=== PATIENT | male | born 1975 | race Caucasian/White ===

== ENCOUNTER 2019-01-04 18:54 | Inpatient (IN) | payer MEDICAID ==
--- NOTE | 2019-01-04 19:35 | ED Physician Chart ---
ED Chief Complaint/HPI - Patient Information Date Seen:: 01/04/19 Time Seen:: 19:29 Chief Complaint:: sob resp distress leg swelling History of Present Illness:: 43 yr old male with hx of cardiomyopathy unclear why and cardimyopathy and now worse sob and trouble breathng pt simon s sleep apnea and trouble sleeping here snoring sleeping here with sister who gave me the hx pt not talking much sleepy and sleeping Allergies:: Allergies Allergy/AdvReac Type Severity Reaction Status Date / Time No Known Allergies Allergy Verified 08/17/16 12:39 Vitals:: Vital Signs - 8 hr 01/04/19 19:19 Temp 97.8 F HR 108 RR 23 BP 118/95 O2 Sat % 96 ED Review of Systems - Review of Systems General/Constitutional: No fever Skin: No skin lesions Head: No headache Eyes: No loss of vision ENT: No earache Neck: No neck pain Cardio Vascular: No chest pain Pulmonary: SOB GI: No nausea G/U: No dysuria Musculoskeletal: No bone or joint pain Endocrine: No polyuria Hematopoietic: No bruising Allergic/Immuno: No urticaria Neurological: No syncope ED Past Medical History - Past Medical History Past Medical History: Other (cardiomyopathy chf severe leg edema bilaterally) Family Medical History - Family Member Father Ethnicity: Living Status: Still Living Hx Family Hypertension: Yes Hx Family Diabetes: Yes ED Physical Exam - Physical Examination Other Gen/Cons comments:: snoring severe sleep apnea Head: Atraumatic Eyes: Lids, conjuctiva normal Skin: Nl inspection, No rash ENMT: External ears, nose nl Neck: Nontender Other Respiratory comments:: snoring sleep apnea Cardio Vascular: RRR GI: No organomegaly : No CVA tenderness Extremities: No tenderness or effusion Neuro/Psych: Alert/oriented ED Assessment - Assessment General Assessment: sleep apnea obstructive sleep apnea with sob resp distress ED Septic Shock - . Is Septic Shock (SBP<90, OR Lactate>4 mmol\L) present?: No - <6hrs of presentation: Vital Signs: Vital Signs - 8 hr 01/04/19 19:19 Temp 97.8 F HR 108 RR 23 BP 118/95 O2 Sat % 96 ED Reassessment (Disposition) - Reassessment Reassessment:: sleep apnea obstructive sleep apnea sob resp distress Reassessment Condition:: Improved - Diagnosis Diagnosis:: resp distress sleep anea cardiomyopathy and chf ht failure with massive leg edema - Patient Disposition Discharge/Transfer:: Acute Care w/in this hosp Admitted to:: Telemetry Condition at Disposition:: Critical
[2019-01-04] MEDS ORDERED: Albuterol/Ipratropium Neb 3 ML AERS HHN ONE ×2 (19:41→19:43)
[2019-01-04 20:03] LABS: HEMATOCRIT 43.6 % (41.0-60); HEMOGLOBIN 14.8 gm/dL (12-16); MEAN CELL VOLUME 92.4 fl (80-99); MEAN CORPUSCULAR HEMOGLOBIN 31.3 pg (26.0-30.0); MEAN CORPUSCULAR HGB CONC 33.9 pg (28.0-36.0); MEAN PLATELET VOLUME 7.9 fl; PLATELET COUNT 154 Th/cmm (150-400); RED BLOOD COUNT 4.72 Mil/cmm (4.30-5.70); RED CELL DISTRIBUTION WIDTH 14.8 % (11.5-20.0); WHITE BLOOD COUNT 11.8 Th/cmm (4.8-10.8)
[2019-01-04 20:12] LABS: ALBUMIN 3.6 gm/dL (4.2-5.5); ALKALINE PHOSPHATASE 96 U/L (34-104); ANION GAP 13.2 (7.0-16.0); BILIRUBIN,TOTAL 3.6 mg/dL (0.3-1.0); BUN - UREA NITROGEN 15 mg/dL (7-25); CALCIUM SERUM 8.9 mg/dL (8.6-10.3); CARBON DIOXIDE 23.7 mEq/L (21.0-31.0); CHLORIDE 101 mEq/L (98-107); CREATININE - SERUM 0.8 mg/dL (0.7-1.3); GFR AFRICAN-AMERICAN > 60.0 ml/min (>90); GFR NON AFRICAN-AMERICAN > 60.0 ml/min; GLUCOSE 106 mg/dL (70-105); POTASSIUM SERUM 3.9 mEq/L (3.5-5.1); SGOT 28 U/L (13-39); SGPT/ALT 23 U/L (7-52); SODIUM SERUM 134 mEq/L (136-145); TOTAL PROTEIN,SERUM 7.2 gm/dL (6.0-8.3)
[2019-01-04 22:11] LABS: BAND NEUTROPHILE 0 % (0-10); BASOPHIL 0 % (0-3); EOSINOPHIL 0 % (0-5); LYMPHOCYTE 8 % (20-50); MONOCYTE 8 % (2-10); NEUTROPHILS 84 % (40-80)
[2019-01-05 00:50] LABS: PaCO2 43.7 mmHg (35.0-45.0); PaO2 109.5 mmHg (80.0-100.0); pH 7.38 (7.35-7.45)
[2019-01-05 00:52] LABS: ALLEN TEST Positive; sO2c 97.9 % (92.0-100.0)
[2019-01-05 05:26] VITALS: BP 137/97
[2019-01-05 06:40] LABS: ANION GAP 12.8 (7.0-16.0); BUN - UREA NITROGEN 17 mg/dL (7-25); CALCIUM SERUM 8.9 mg/dL (8.6-10.3); CARBON DIOXIDE 26.1 mEq/L (21.0-31.0); CHLORIDE 101 mEq/L (98-107); CREATININE - SERUM 0.9 mg/dL (0.7-1.3); GFR AFRICAN-AMERICAN > 60.0 ml/min (>90); GFR NON AFRICAN-AMERICAN > 60.0 ml/min; GLUCOSE 96 mg/dL (70-105); POTASSIUM SERUM 3.9 mEq/L (3.5-5.1); SODIUM SERUM 136 mEq/L (136-145)
[2019-01-05] MEDS: Enoxaparin 40 mg/0.4 mL 0.4mL Syr SUBQ SCH (08:25)
[2019-01-05] MEDS: Aspirin 81mg Chewable Tab PO SCH (08:25)
--- NOTE | 2019-01-05 09:38 | Diagnostic Imaging Report ---
Exam: Chest x-ray HISTORY: Shortness of breath. Prior exam: 05/03/2017. Findings: Frontal examination of chest was reviewed. The study demonstrates cardiomegaly. There is evidence for obliteration of left costophrenic angle with small effusion and superimposed left basilar infiltrate. Bony thorax intact. IMPRESSION: Cardiomegaly. Most likely left basilar infiltrate and small effusion. Follow-up exam is recommended.
[2019-01-05 10:09] LABS: URINE SOURCE CLEAN C
[2019-01-05 10:13] LABS: URINE BILIRUBIN NEGATIVE (NEGATIVE); URINE BLOOD NEGATIVE (NEGATIVE); URINE GLUCOSE (UA) NEGATIVE (NEGATIVE); URINE KETONE NEGATIVE (NEGATIVE); URINE LEUKOCYTE ESTERASE NEGATIVE (NEGATIVE); URINE NITRATE NEGATIVE (NEGATIVE); URINE PROTEIN NEGATIVE (NEGATIVE); URINE UROBILINOGEN 0.2 E.U./dL (0.2 - 1.0)
[2019-01-05 10:16] LABS: URINE CLARITY CLEAR (CLEAR); URINE COLOR YELLOW; URINE MICROSCOPIC INDICATED? NO
--- NOTE | 2019-01-05 21:06 | History & Physical ---
ADMIT DATE: 01/05/2019 CHIEF COMPLAINT: Acute shortness of breath. HISTORY OF PRESENT ILLNESS: The patient is a 43-year-old male with long history of cardiomyopathy, obesity, sleep apnea, hypertension, presented to the Emergency Room with progressive shortness of breath for a few days' duration. By the ER physician, initial workup subacute exacerbation of CHF. The patient admitted to the hospital, started on medication and BiPAP. Cardiac consultation obtained. The patient denies any fever, any chills, or any chest pain. PAST MEDICAL HISTORY: Significant for hypertension, cardiomyopathy, CHF, sleep apnea, morbid obesity. PAST SURGICAL HISTORY: Abdominal hernia repair. ALLERGIES: None. MEDICATIONS: Follow admission reconciliation. SOCIAL HISTORY: No smoker, no alcohol, no drug. FAMILY HISTORY: Noncontributory. REVIEW OF SYSTEMS: RENAL SYSTEM: No history of chronic renal disorder. CARDIOVASCULAR SYSTEM: He has history of congestive heart failure, cardiomyopathy, hypertension. ENDOCRINE SYSTEM: No diabetes or thyroid problem. GASTROINTESTINAL SYSTEM: No upper or lower gastrointestinal bleed. NEUROLOGICAL SYSTEM: No seizure disorder. MUSCULOSKELETAL SYSTEM: No muscular dystrophy. HEMATOLOGIC SYSTEM: No bleeding tendencies. RESPIRATORY SYSTEM: Sleep apnea. PHYSICAL EXAMINATION: GENERAL: He is awake, alert, oriented, not in pain or distress. VITAL SIGNS: Temperature 98.2, heart rate 64, blood pressure 112/61. HEENT: Normocephalic. Pupils reacting equal to light and accommodation. Sclerae clear. NECK: Supple. Negative for lymphadenopathy, JVD or bruit. CHEST: Entry of air bilateral normal. No rhonchi or wheezing. HEART: S1, S2 normal. No gallop rhythm. ABDOMEN: Soft, bowel sounds positive. EXTREMITIES: 1+ edema. NEUROLOGIC: Awake, alert, oriented. No focal motor deficits. Cranial nerves 2-12 intact. ASSESSMENT: 1. Acute exacerbation of congestive heart failure. 2. Cardiomyopathy. 3. Hypertension. 4. Sleep apnea. PLAN: The patient in telemetry under Dr. Hanna's service, started on cardiac diet, IV Lasix, resume his home medication. Cardiac consultation obtained. The patient is a full code. Lovenox 40 subq daily ordered. JOB# [id number]
[2019-01-06] MEDS ORDERED: Piperacillin Sodium/Tazobact 3.375 gm Vial IV ONE (05:46)
[2019-01-06 06:18] LABS: ALB/GLOB RATIO 0.9 (1.0-1.8); ALBUMIN 3.4 gm/dL (4.2-5.5); ALKALINE PHOSPHATASE 93 U/L (34-104); ANION GAP 11.8 (7.0-16.0); BILIRUBIN,TOTAL 2.7 mg/dL (0.3-1.0); BUN - UREA NITROGEN 20 mg/dL (7-25); CALCIUM SERUM 8.9 mg/dL (8.6-10.3); CHLORIDE 98 mEq/L (98-107); CHOLESTEROL 91 mg/dL (<200); GLUCOSE 109 mg/dL (70-105); HDL -HIGH DENSITY LIPOPROTEIN 36 mg/dL (23-92); POTASSIUM SERUM 3.8 mEq/L (3.5-5.1); SGOT 24 U/L (13-39); SGPT/ALT 21 U/L (7-52); SODIUM SERUM 133 mEq/L (136-145); TRIGLYCERIDES 53 mg/dL (<150)
--- NOTE | 2019-01-06 07:02 | Consultation ---
DATE OF CONSULTATION: 01/05/2019 HISTORY OF PRESENT ILLNESS: This is a 43-year-old male who was seen and examined. The patient was admitted here with shortness of breath and respiratory distress. He was found to be in congestive heart failure. The patient had an echocardiogram done today, which showed the ejection fraction of 10 only. The patient had severe left ventricular systolic dysfunction and cardiomyopathy. The patient has history of hypertension, hyperlipidemia, and probable old DC. The patient also found to have cellulitis of both lower extremities. He also has history of obstructive sleep apnea, he has been advised to use BiPAP and obesity. The patient denied any chest pain, has history of shortness of breath, no history of cough, history of swelling over the legs. No history of palpitations, no history of dizziness, no history of syncope, no history of abdominal pain. PAST MEDICAL HISTORY: Not much available as mentioned above. FAMILY HISTORY: Not much available. SOCIAL HISTORY: Denies smoking or drinking. PHYSICAL EXAMINATION: VITAL SIGNS: Heart rate was 86, blood pressure was 126/97, temperature 98.3, respirations 20. SKIN: Normal. HEENT: Normocephalic. Conjunctivae were pink. There is no icterus in the eyes. Pupils reactive to light. NECK: There was no increased jugular venous distention, no thyromegaly, no lymphadenopathy. Carotids equal, both sides. CHEST: Bilaterally symmetrical. Moves well with respiration. Respiratory movements equal both sides. Trachea is central. There is note to percussion. Breath sounds, bilateral rales. CARDIOVASCULAR SYSTEM: PMI not well localized and no positional thrill. No parasternal heave. S1 normal, S2 physiologic. S3 was present. There was no rub. ABDOMEN: Soft, no tenderness, no rigidity, no guarding and no organomegaly. Bowel sounds normal. EXTREMITIES: Bilateral edema and swelling of the legs and redness of both lower extremities. LABORATORY DATA: EKG showed sinus rhythm, loss of R-wave from V1-V4 and a very small R-wave in V5 and V6, possible left atrial enlargement, also could be possible old anterior wall DC. Chest x-ray report is not available to me. BNP was 1550. Sodium 134, potassium 3.9, chloride 101, CO2 of 23.7, glucose 106, BUN 15, creatinine 0.8, calcium 8.9, total protein 7.2, albumin 3.6, globulin 3.6, bilirubin total 3.6, SGOT 28, SGPT 23, alkaline phosphatase 96. Blood gases reveal pH of 7.38, pCO2 of 43.7, pO2 of 109.5, HCO3 25.3. WBC was 11.8, RBC 4.72, hemoglobin 14.8, hematocrit 43.6, MCV 92.4, MCH 31.3, MCHC 33.9, platelet 154, neutrophils 84. Echocardiogram as mentioned above showed ejection fraction of 10%. IMPRESSION: Shortness of breath, congestive heart failure, severe left ventricular systolic dysfunction, severe cardiomyopathy, hypertension, hyperlipidemia, cellulitis of both lower extremities, obesity, history of obstructive sleep apnea. PLAN: Repeat the troponin, repeat EKG in a.m., lipid profile and TSH. Continue diuretics, Lasix and Aldactone, potassium supplement if needed. We will continue carvedilol 12.5 b.i.d. We will add aspirin also, Lovenox 40 mg subcutaneous daily. The patient should be seen by ID. In the meantime, we will put her on some antibiotics, vancomycin and Zosyn, pharmacy to follow, but subsequent antibiotic should be followed by ID or PMD since the patient has been on medical management before and since patient's ejection fraction is very low, we should definitely consider and offer AICD to the patient. I will discuss with the PMD. The patient will be subsequently followed by Dr. David Arnold. I will just cover for him. JOB# [id number]
[2019-01-06 07:40] LABS: CREATININE - SERUM 0.8 mg/dL (0.7-1.3); GFR AFRICAN-AMERICAN > 60.0 ml/min (>90); GFR NON AFRICAN-AMERICAN > 60.0 ml/min
[2019-01-06] MEDS: Enoxaparin 40 mg/0.4 mL 0.4mL Syr SUBQ SCH (08:52)
[2019-01-06] MEDS: Atorvastatin Calcium 10 MG TAB PO SCH (08:53)
[2019-01-06] MEDS: Aspirin 81mg Chewable Tab PO SCH (08:54)
[2019-01-06] MEDS: Vancomycin HCl 1.5 GM in Sodium Chloride 0.9% 500 ML IV SCH (16:35)
--- NOTE | 2019-01-06 21:13 | Internal Medicine Prog Note ---
Internal Medicine Subjective - Subjective Service Date: 01/06/19 Patient is:: awake, verbal, in bed, talking Per staff patient has:: no adverse event Internal Medicine Objective - Results Result Diagrams: 01/04/19 19:35 01/06/19 04:51 Recent Labs: Laboratory Last Values WBC 11.8 Th/cmm (4.8-10.8) H 01/04/19 19:35 RBC 4.72 Mil/cmm (4.30-5.70) 01/04/19 19:35 Hgb 14.8 gm/dL (12-16) 01/04/19 19:35 Hct 43.6 % (41.0-60) 01/04/19 19:35 MCV 92.4 fl (80-99) 01/04/19 19:35 MCH 31.3 pg (26.0-30.0) H 01/04/19 19:35 MCHC Differential 33.9 pg (28.0-36.0) 01/04/19 19:35 RDW 14.8 % (11.5-20.0) 01/04/19 19:35 Plt Count 154 Th/cmm (150-400) 01/04/19 19:35 MPV 7.9 fl 01/04/19 19:35 Add Manual Diff YES 01/04/19 19:35 Band Neutrophils % 0 % (0-10) 01/04/19 19:35 Neutrophils (Manual) 84 % (40-80) H 01/04/19 19:35 Lymphocytes 8 % (20-50) L 01/04/19 19:35 Monocytes 8 % (2-10) 01/04/19 19:35 Eosinophils 0 % (0-5) 01/04/19 19:35 Basophils 0 % (0-3) 01/04/19 19:35 Specimen Source ARTERIAL 01/05/19 00:30 Sample Site Right Radial 01/05/19 00:30 pH 7.38 (7.35-7.45) 01/05/19 00:30 pCO2 43.7 mmHg (35.0-45.0) 01/05/19 00:30 pO2 109.5 mmHg (80.0-100.0) H 01/05/19 00:30 HCO3 25.3 mEq/L (20.0-26.0) 01/05/19 00:30 Base Excess 0.0 mEq/L (-3.0-3.0) 01/05/19 00:30 O2 Saturation 97.9 % (92.0-100.0) 01/05/19 00:30 Javier Test Positive 01/05/19 00:30 Vent Rate N/A 01/05/19 00:30 Inspired O2 36 01/05/19 00:30 Tidal Volume N/A 01/05/19 00:30 PEEP N/A 01/05/19 00:30 Pressure (ins/psv/peep) N/A 01/05/19 00:30 Critical Value MM,AUTO [employer] CUST[employer]IZER 01/05/19 00:30 Sodium 133 mEq/L (136-145) L 01/06/19 04:51 Potassium 3.8 mEq/L (3.5-5.1) 01/06/19 04:51 Chloride 98 mEq/L (98-107) 01/06/19 04:51 Carbon Dioxide 27.0 mEq/L (21.0-31.0) 01/06/19 04:51 Anion Gap 11.8 (7.0-16.0) 01/06/19 04:51 BUN 20 mg/dL (7-25) 01/06/19 04:51 Creatinine 0.8 mg/dL (0.7-1.3) 01/06/19 04:51 Est GFR ( Amer) > 60.0 ml/min (>90) 01/06/19 04:51 Est GFR (Non-Af Amer) > 60.0 ml/min 01/06/19 04:51 BUN/Creatinine Ratio 25.0 01/06/19 04:51 Glucose 109 mg/dL (70-105) H 01/06/19 04:51 Calcium 8.9 mg/dL (8.6-10.3) 01/06/19 04:51 Total Bilirubin 2.7 mg/dL (0.3-1.0) H 01/06/19 04:51 AST 24 U/L (13-39) 01/06/19 04:51 ALT 21 U/L (7-52) 01/06/19 04:51 Alkaline Phosphatase 93 U/L (34-104) 01/06/19 04:51 B-Natriuretic Peptide 671.0 pg/mL (5.0-100.0) H 01/06/19 04:51 Total Protein 7.0 gm/dL (6.0-8.3) 01/06/19 04:51 Albumin 3.4 gm/dL (4.2-5.5) L 01/06/19 04:51 Globulin 3.6 gm/dL 01/06/19 04:51 Albumin/Globulin Ratio 0.9 (1.0-1.8) L 01/06/19 04:51 Triglycerides 53 mg/dL (<150) 01/06/19 04:51 Cholesterol 91 mg/dL (<200) 01/06/19 04:51 LDL Cholesterol Direct 52 mg/dL (75-193) L 01/06/19 04:51 HDL Cholesterol 36 mg/dL (23-92) 01/06/19 04:51 TSH 0.03 uIU/ml (0.34-5.60) L 01/06/19 04:51 Urine Source CLEAN C 01/05/19 10:00 Urine Color YELLOW 01/05/19 10:00 Urine Clarity CLEAR (CLEAR) 01/05/19 10:00 Urine pH 6.0 (4.6 - 8.0) 01/05/19 10:00 Ur Specific [place] 1.010 (1.005-1.030) 01/05/19 10:00 Urine Protein NEGATIVE mg/dL (NEGATIVE) 01/05/19 10:00 Urine Glucose (UA) NEGATIVE mg/dL (NEGATIVE) 01/05/19 10:00 Urine Ketones NEGATIVE mg/dL (NEGATIVE) 01/05/19 10:00 Urine Blood NEGATIVE (NEGATIVE) 01/05/19 10:00 Urine Nitrate NEGATIVE (NEGATIVE) 01/05/19 10:00 Urine Bilirubin NEGATIVE (NEGATIVE) 01/05/19 10:00 Urine Urobilinogen 0.2 E.U./dL (0.2 - 1.0) 01/05/19 10:00 Ur Leukocyte Esterase NEGATIVE (NEGATIVE) 01/05/19 10:00 - Physical Exam Vitals and I&O: Vital Signs Temp 97.6 F 01/06/19 20:00 Pulse 82 01/06/19 20:00 Resp 19 01/06/19 20:00 BP 116/77 01/06/19 20:00 Pulse Ox 95 01/06/19 20:00 Intake & Output 01/06/19 01/06/19 01/07/19 06:59 18:59 06:59 Intake Total 50 2100 Output Total 2049 Balance 50 50 Weight (lbs) 44.543 kg 136.305 kg Intake: Intake, IV Amount 50 850 Piperacillin Sodium/ 50 100 Tazobact 3.375 gm In Sodium Chloride 0.9% 50 ml @ 100 mls/hr IV Q6HR [facility] Rx#:[id number] Vancomycin HCl 1.5 gm In 500 Sodium Chloride 0.9% 500 ml @ 250 mls/hr IV Q8HR@ 0100,0900,1700 [facility] Rx#: [id number] Oral 1250 Output: Urine 2049 Other: # Voids 3 # Bowel Movements 2 Stool Characteristics Soft Soft Formed Formed Brown Brown Weight Source Bedscale Bedscale Active Medications: Current Medications Acetaminophen (Tylenol) 650 mg PO Q4H PRN PRN Reason: Pain (Moderate) Stop: 03/07/19 14:17 Last Admin: 01/06/19 14:59 Dose: 650 mg Aspirin (Aspirin Chewable) 81 mg PO DAILY [facility] Stop: 03/06/19 08:59 Last Admin: 01/06/19 08:54 Dose: 81 mg Atorvastatin Calcium (Lipitor) 20 mg PO DAILY [facility]; Protocol Stop: 03/07/19 08:59 Last Admin: 01/06/19 08:53 Dose: 20 mg Carvedilol (Coreg) 12.5 mg PO DAILY [facility] Stop: 03/06/19 08:59 Last Admin: 01/06/19 08:53 Dose: 12.5 mg Enoxaparin Sodium (Lovenox) 40 mg SUBQ DAILY [facility] Stop: 03/06/19 08:59 Last Admin: 01/06/19 08:52 Dose: 40 mg Furosemide (Lasix) 40 mg IVP BID [facility] Stop: 03/06/19 08:59 Last Admin: 01/06/19 17:29 Dose: 40 mg Piperacillin Sod/Tazobactam (Sod 3.375 gm/ Sodium Chloride) 50 mls @ 100 mls/ hr IV Q6HR [facility] Stop: 03/07/19 05:59 Last Infusion: 01/06/19 18:43 Dose: Infused Vancomycin HCl 1.5 gm/ Sodium (Chloride) 500 mls @ 250 mls/hr IV Q8HR@0100,0900 ,1700 [facility] Stop: 03/07/19 16:59 Last Infusion: 01/06/19 18:43 Dose: Infused Lisinopril (Zestril) 5 mg PO DAILY [facility] Stop: 03/07/19 08:59 Last Admin: 01/06/19 08:53 Dose: 5 mg Miscellaneous (Zosyn Iv Per Pharmacy) 1 [facility] PRN PRN PRN Reason: Suspected infection Stop: 03/07/19 05:08 Miscellaneous (Vancomycin Iv Per Pharmacy) 1 [facility] PRN PRN PRN Reason: PROTOCOL Stop: 03/07/19 08:48 Spironolactone (Aldactone) 50 mg PO DAILY [facility] Stop: 03/06/19 08:59 Last Admin: 01/06/19 08:54 Dose: 50 mg General: alert, obese HEENT: NC/AT, PERRLA, EOMI, anicteric sclerae, throat clear Neck: Supple, No JVD, No thyromegaly, +2 carotid pulse wo bruit, No LAD Cardiovascular: RRR, Normal S1, Normal S2, without murmur Abdomen: soft, non-tender, non-distended Extremities: edema Neurological: no change, alert - Procedures Procedures: Procedures Procedure Code Date DRAINAGE OF STOMACH WITH DRAINAGE DEVICE, VIA OPENING [id number] 08/17/16 EXCISION OF GREATER OMENTUM, OPEN APPROACH [id number] 08/17/16 REPAIR ABDOMINAL WALL, OPEN APPROACH [id number] 08/17/16 Internal Medicine Assmt/Plan - Assessment Assessment: 1.ACUTE SYSTOLIC CHF. 2.MORBID OBESITY. 3.CELLULITES OF LOWER EXTREMETIES. 4.SLEEPING APNEA. - Plan Plan: LIQUID RESTRICTION.
[2019-01-07] MEDS: Vancomycin HCl 1.5 GM in Sodium Chloride 0.9% 500 ML IV SCH ×2 (00:49→11:05)
[2019-01-07 06:41] LABS: % EOSINOPHILS 4.6 % (0.0-5.0); % LYMPHOCYTES 13.2 % (20.0-50.0); % MONOCYTES 11.6 % (2.0-10.0); % NEUTROPHILS 70.6 % (40.0-80.0); EOSINOPHILE ABSOLUTE 0.3 Th/cmm (0.1-0.4); HEMATOCRIT 44.6 % (41.0-60); HEMOGLOBIN 14.8 gm/dL (12-16); LYMPHOCYTE ABSOLUTE 0.9 Th/cmm (1.5-3.0); MEAN CELL VOLUME 93.1 fl (80-99); MEAN CORPUSCULAR HEMOGLOBIN 30.8 pg (26.0-30.0); MEAN CORPUSCULAR HGB CONC 33.1 pg (28.0-36.0); MEAN PLATELET VOLUME 8.2 fl; MONOCYTE ABSOLUTE 0.8 Th/cmm (0.3-1.0); NEUTROPHILE ABSOLUTE 5.1 Th/cmm (1.8-8.0); PLATELET COUNT 183 Th/cmm (150-400); RED BLOOD COUNT 4.79 Mil/cmm (4.30-5.70); RED CELL DISTRIBUTION WIDTH 14.7 % (11.5-20.0); WHITE BLOOD COUNT 7.1 Th/cmm (4.8-10.8)
[2019-01-07 07:00] LABS: MAGNESIUM 1.9 mg/dL (1.9-2.7); PHOSPHOROUS 3.2 mg/dL (2.5-5.0)
[2019-01-07] MEDS: Aspirin 81mg Chewable Tab PO SCH (09:22)
[2019-01-07] MEDS: Atorvastatin Calcium 10 MG TAB PO SCH (09:23)
[2019-01-07] MEDS: Enoxaparin 40 mg/0.4 mL 0.4mL Syr SUBQ SCH (09:24)
--- NOTE | 2019-01-07 13:08 | General Progress Note ---
Subjective - Review of Systems Service Date: 01/07/19 Subjective: Patient has less shortness of breath still swelling in both lower extremity Objective - Results Result Diagrams: 01/07/19 05:40 01/06/19 04:51 Recent Labs: Laboratory Last Values WBC 7.1 Th/cmm (4.8-10.8) 01/07/19 05:40 RBC 4.79 Mil/cmm (4.30-5.70) 01/07/19 05:40 Hgb 14.8 gm/dL (12-16) 01/07/19 05:40 Hct 44.6 % (41.0-60) 01/07/19 05:40 MCV 93.1 fl (80-99) 01/07/19 05:40 MCH 30.8 pg (26.0-30.0) H 01/07/19 05:40 MCHC Differential 33.1 pg (28.0-36.0) 01/07/19 05:40 RDW 14.7 % (11.5-20.0) 01/07/19 05:40 Plt Count 183 Th/cmm (150-400) 01/07/19 05:40 MPV 8.2 fl 01/07/19 05:40 Add Manual Diff YES 01/04/19 19:35 Neutrophils % 70.6 % (40.0-80.0) 01/07/19 05:40 Band Neutrophils % 0 % (0-10) 01/04/19 19:35 Lymphocytes % 13.2 % (20.0-50.0) L 01/07/19 05:40 Monocytes % 11.6 % (2.0-10.0) H 01/07/19 05:40 Eosinophils % 4.6 % (0.0-5.0) 01/07/19 05:40 Basophils % 0.0 % (0.0-2.0) 01/07/19 05:40 Neutrophils (Manual) 84 % (40-80) H 01/04/19 19:35 Lymphocytes 8 % (20-50) L 01/04/19 19:35 Monocytes 8 % (2-10) 01/04/19 19:35 Eosinophils 0 % (0-5) 01/04/19 19:35 Basophils 0 % (0-3) 01/04/19 19:35 Specimen Source ARTERIAL 01/05/19 00:30 Sample Site Right Radial 01/05/19 00:30 pH 7.38 (7.35-7.45) 01/05/19 00:30 pCO2 43.7 mmHg (35.0-45.0) 01/05/19 00:30 pO2 109.5 mmHg (80.0-100.0) H 01/05/19 00:30 HCO3 25.3 mEq/L (20.0-26.0) 01/05/19 00:30 Base Excess 0.0 mEq/L (-3.0-3.0) 01/05/19 00:30 O2 Saturation 97.9 % (92.0-100.0) 01/05/19 00:30 Javier Test Positive 01/05/19 00:30 Vent Rate N/A 01/05/19 00:30 Inspired O2 36 01/05/19 00:30 Tidal Volume N/A 01/05/19 00:30 PEEP N/A 01/05/19 00:30 Pressure (ins/psv/peep) N/A 01/05/19 00:30 Critical Value MM,AC/DC REWINDER 01/05/19 00:30 Sodium 133 mEq/L (136-145) L 01/06/19 04:51 Potassium 3.8 mEq/L (3.5-5.1) 01/06/19 04:51 Chloride 98 mEq/L (98-107) 01/06/19 04:51 Carbon Dioxide 27.0 mEq/L (21.0-31.0) 01/06/19 04:51 Anion Gap 11.8 (7.0-16.0) 01/06/19 04:51 BUN 20 mg/dL (7-25) 01/06/19 04:51 Creatinine 0.8 mg/dL (0.7-1.3) 01/06/19 04:51 Est GFR ( Amer) > 60.0 ml/min (>90) 01/06/19 04:51 Est GFR (Non-Af Amer) > 60.0 ml/min 01/06/19 04:51 BUN/Creatinine Ratio 25.0 01/06/19 04:51 Glucose 109 mg/dL (70-105) H 01/06/19 04:51 Calcium 8.9 mg/dL (8.6-10.3) 01/06/19 04:51 Phosphorus 3.2 mg/dL (2.5-5.0) 01/07/19 05:40 Magnesium 1.9 mg/dL (1.9-2.7) 01/07/19 05:40 Total Bilirubin 2.7 mg/dL (0.3-1.0) H 01/06/19 04:51 AST 24 U/L (13-39) 01/06/19 04:51 ALT 21 U/L (7-52) 01/06/19 04:51 Alkaline Phosphatase 93 U/L (34-104) 01/06/19 04:51 B-Natriuretic Peptide 671.0 pg/mL (5.0-100.0) H 01/06/19 04:51 Total Protein 7.0 gm/dL (6.0-8.3) 01/06/19 04:51 Albumin 3.4 gm/dL (4.2-5.5) L 01/06/19 04:51 Globulin 3.6 gm/dL 01/06/19 04:51 Albumin/Globulin Ratio 0.9 (1.0-1.8) L 01/06/19 04:51 Triglycerides 53 mg/dL (<150) 01/06/19 04:51 Cholesterol 91 mg/dL (<200) 01/06/19 04:51 LDL Cholesterol Direct 52 mg/dL (75-193) L 01/06/19 04:51 HDL Cholesterol 36 mg/dL (23-92) 01/06/19 04:51 TSH 0.03 uIU/ml (0.34-5.60) L 01/06/19 04:51 Urine Source CLEAN C 01/05/19 10:00 Urine Color YELLOW 01/05/19 10:00 Urine Clarity CLEAR (CLEAR) 01/05/19 10:00 Urine pH 6.0 (4.6 - 8.0) 01/05/19 10:00 Ur Specific [place] 1.010 (1.005-1.030) 01/05/19 10:00 Urine Protein NEGATIVE mg/dL (NEGATIVE) 01/05/19 10:00 Urine Glucose (UA) NEGATIVE mg/dL (NEGATIVE) 01/05/19 10:00 Urine Ketones NEGATIVE mg/dL (NEGATIVE) 01/05/19 10:00 Urine Blood NEGATIVE (NEGATIVE) 01/05/19 10:00 Urine Nitrate NEGATIVE (NEGATIVE) 01/05/19 10:00 Urine Bilirubin NEGATIVE (NEGATIVE) 01/05/19 10:00 Urine Urobilinogen 0.2 E.U./dL (0.2 - 1.0) 01/05/19 10:00 Ur Leukocyte Esterase NEGATIVE (NEGATIVE) 01/05/19 10:00 - Physical Exam Vitals and I&O: Vital Signs Temp 98 F 01/07/19 12:00 Pulse 79 01/07/19 12:00 Resp 20 01/07/19 12:00 BP 128/82 01/07/19 12:00 Pulse Ox 100 01/07/19 12:00 Intake & Output 01/06/19 01/07/19 01/07/19 18:59 06:59 18:59 Intake Total 2100 100 Output Total 2050 1650 Balance 50 -1550 Weight (lbs) 136.305 kg 121.109 kg Intake: Intake, IV Amount 850 50 Piperacillin Sodium/ 100 50 Tazobact 3.375 gm In Sodium Chloride 0.9% 50 ml @ 100 mls/hr IV Q6HR [facility] Rx#:[id number] Vancomycin HCl 1.5 gm In 500 Sodium Chloride 0.9% 500 ml @ 250 mls/hr IV Q8HR@ 0100,0900,1700 [facility] Rx#: [id number] Oral 1250 50 Output: Urine 2049 1650 Other: # Voids 3 2 # Bowel Movements 2 2 Stool Characteristics Soft Soft Formed Formed Brown Brown Weight Source Bedscale Bedscale Active Medications: Current Medications Acetaminophen (Tylenol) 650 mg PO Q4H PRN PRN Reason: Pain (Moderate) Stop: 03/07/19 14:17 Last Admin: 01/06/19 14:59 Dose: 650 mg Aspirin (Aspirin Chewable) 81 mg PO DAILY [facility] Stop: 03/06/19 08:59 Last Admin: 01/07/19 09:22 Dose: 81 mg Atorvastatin Calcium (Lipitor) 20 mg PO DAILY [facility]; Protocol Stop: 03/07/19 08:59 Last Admin: 01/07/19 09:23 Dose: 20 mg Carvedilol (Coreg) 12.5 mg PO DAILY [facility] Stop: 03/06/19 08:59 Last Admin: 01/07/19 09:22 Dose: 12.5 mg Enoxaparin Sodium (Lovenox) 40 mg SUBQ DAILY [facility] Stop: 03/06/19 08:59 Last Admin: 01/07/19 09:24 Dose: 40 mg Furosemide (Lasix) 40 mg IVP BID [facility] Stop: 03/06/19 08:59 Last Admin: 01/07/19 09:21 Dose: 40 mg Vancomycin HCl 1.5 gm/ Sodium (Chloride) 300 mls @ 150 mls/hr IV Q8H [facility] Stop: 03/08/19 16:59 Levofloxacin (Levaquin Pb) 500 mg in 100 mls @ 100 mls/hr IV Q24HR [facility] Stop: 03/08/19 11:59 Lisinopril (Zestril) 5 mg PO DAILY [facility] Stop: 03/07/19 08:59 Last Admin: 01/07/19 09:22 Dose: 5 mg Miscellaneous (Zosyn Iv Per Pharmacy) 1 [facility] PRN PRN PRN Reason: Suspected infection Stop: 03/07/19 05:08 Miscellaneous (Vancomycin Iv Per Pharmacy) 1 [facility] PRN PRN PRN Reason: PROTOCOL Stop: 03/07/19 08:48 Spironolactone (Aldactone) 50 mg PO DAILY [facility] Stop: 03/06/19 08:59 Last Admin: 01/07/19 09:22 Dose: 50 mg General: Alert HEENT: Mucous membr. moist/pink Neck: Supple, JVD (10 cm post tunnel angle), +2 carotid pulse wo bruit Cardiovascular: Regular rate, Normal S1, Normal S2, Systolic murmurs, Other ( cardiomyopathy) Lungs: Normal air movement, Other (rales) Abdomen: Bowel sounds, Soft, Obese Extremities: Edema, Other (cellulitis in both the legs) Neurological: Normal gait, Normal speech, Normal tone, Reflexes 2+ - Procedures Procedures: Procedures Procedure Code Date DRAINAGE OF STOMACH WITH DRAINAGE DEVICE, VIA OPENING [id number] 08/17/16 EXCISION OF GREATER OMENTUM, OPEN APPROACH [id number] 08/17/16 REPAIR ABDOMINAL WALL, OPEN APPROACH [id number] 08/17/16 Assessment/Plan - Problem List Patient Problems: All Active Problems SEVERE DYSPNEA AND COUGH AND PEDAL EDEMA (Acute) - Assessment Assessment: Congestive heart failure systolic dysfunction and acute Severe cardiomyopathy Hypertension Hyperlipidemia Cellulitis both legs Morbid obesity Obstructive sleep apnea - Plan Plan: Continue IV antibiotic Lasix and get an echocardiogram
--- NOTE | 2019-01-07 14:08 | Diagnostic Imaging Report ---
Bilateral lower extremity DVT study HISTORY: CHF, edema, rule out DVT COMPARISON: None Technique: Longitudinal and transverse sonographic images of the bilateral lower extremity veins were obtained with doppler analysis. FINDINGS: Exam was limited due to patient body habitus. There is normal compressibility, augmentation and phasicity of the bilateral common femoral, superficial femoral, popliteal, and posterior tibial veins. The bilateral peroneal veins were not visualized. No thrombus is visualized. IMPRESSION: Limited exam due to body habitus. No evidence of thrombus within the bilateral lower extremity veins. Note the bilateral peroneal veins were not visualized.
--- NOTE | 2019-01-07 15:41 | Cardiology ---
01/05/[address] Hanna. PROCEDURE: Echocardiogram. M-MODE ECHOCARDIOGRAM: Mitral valve, anterior leaflet of mitral valve shows normal excursion, EF velocity. Posterior leaflet of the mitral valve shows normal excursion. Ejection fraction 10%. Left ventricular posterior wall shows increased thickness, decreased excursion. Interventricular septum shows increased thickness, decreased excursion, ejection fraction 10%. Left atrium enlarged 4.4 cm. Aortic root shows normal dimension, normal excursion of aortic leaflets. CONCLUSION: Hypertrophy of the left ventricle, cardiomyopathy, ejection fraction 10%, left atrial enlargement. 2D ECHO: Long axis view shows enlarged left ventricular cavity with global hypokinesis. Mitral valve shows decreased excursion. Left atrium enlarged. Aortic root shows normal dimension, normal excursion of aortic leaflets. Short axis view of mitral valve normal. Short axis view of aortic valve normal. Apical four chamber view shows enlarged left ventricular cavity with decreased ejection fraction. Left atrium enlargement, right ventricular cavity, right atrium normal, no pericardial effusion. CONCLUSION: Hypertrophy of the left ventricle, cardiomyopathy, ejection fraction 10%, left atrial enlargement. Doppler study shows moderate mitral regurgitation, mild tricuspid regurgitation, mild pulmonary regurgitation, right ventricular systolic pressure 29 mmHg. CONCLUSION: Cardiomyopathy, ejection fraction 10%, left atrial enlargement, moderate mitral regurgitation, mild tricuspid regurgitation, mild pulmonary regurgitation. [facility]# [id number]
--- NOTE | 2019-01-07 17:26 | Infectious Disease Prog Note ---
Infectious Disease Subjective - Review of Systems Service Date: 01/07/19 Subjective: cellulitis pn hpi- vemnous duplex neg dvt abx adjusted ros no efvr o/e vs scheat vesicukar abd soft ext pulse edema cellulitis Vital Signs - 24 hr 01/06/19 01/06/19 01/06/19 17:29 19:00 19:55 Temp HR 59 RR 18 20 BP 104/61 O2 Sat % 98 01/06/19 01/06/19 01/06/19 20:00 21:33 23:00 Temp 97.6 F HR 82 RR 19 24 18 BP 116/77 O2 Sat % 95 98 01/06/19 01/07/19 01/07/19 23:32 00:00 01:25 Temp 98.2 F HR 87 RR 27 18 20 BP 128/79 O2 Sat % 98 100 98 01/07/19 01/07/19 01/07/19 03:00 03:36 04:00 Temp 98.7 F 98.7 F HR 103 86 RR 20 19 19 BP 132/85 124/67 O2 Sat % 97 97 01/07/19 01/07/19 01/07/19 07:17 08:00 09:21 Temp 97.4 F HR 74 87 RR 20 20 BP 139/96 139/96 O2 Sat % 94 94 01/07/19 01/07/19 01/07/19 09:22 11:00 12:00 Temp 98 F HR 87 79 RR 20 20 BP 139/96 128/82 O2 Sat % 100 01/07/19 16:00 Temp 97.3 F HR 58 RR 25 BP 90/45 O2 Sat % 93 Microbiology 01/04/19 19:50 Blood - Preliminary NO GROWTH AFTER 48 HOURS 01/04/19 19:35 Blood - Preliminary NO GROWTH AFTER 48 HOURS 01/05/19 06:55 Nares - Final NO MRSA ISOLATED Laboratory Results - last 24 hr 01/07/19 01/07/19 01/07/19 05:40 05:40 16:00 WBC 7.1 RBC 4.79 Hgb 14.8 Hct 44.6 MCV 93.1 MCH 30.8 H MCHC Differential 33.1 RDW 14.7 Plt Count 183 MPV 8.2 Neutrophils % 70.6 Lymphocytes % 13.2 L Monocytes % 11.6 H Eosinophils % 4.6 Basophils % 0.0 Phosphorus 3.2 Magnesium 1.9 Vancomycin Trough 11.4 H Diagnoses OBESITY, UNSPECIFIED (01/05/19) SLEEP APNEA, UNSPECIFIED (01/05/19) ESSENTIAL (PRIMARY) HYPERTENSION (01/05/19) CARDIOMYOPATHY, UNSPECIFIED (01/05/19) ACUTE ON CHRONIC SYSTOLIC (CONGESTIVE) HEART FAILURE (01/05/19) CELLULITIS OF RIGHT LOWER LIMB (01/05/19) CELLULITIS OF LEFT LOWER LIMB (01/05/19) WEAKNESS (01/05/19) BODY MASS INDEX (BMI) 37.0-37.9, ADULT (01/05/19) Current Medications Acetaminophen (Tylenol) 650 mg PO Q4H PRN PRN Reason: Pain (Moderate) Stop: 03/07/19 14:17 Last Admin: 01/06/19 14:59 Dose: 650 mg Aspirin (Aspirin Chewable) 81 mg PO DAILY [facility] Stop: 03/06/19 08:59 Last Admin: 01/07/19 09:22 Dose: 81 mg Atorvastatin Calcium (Lipitor) 20 mg PO DAILY [facility]; Protocol Stop: 03/07/19 08:59 Last Admin: 01/07/19 09:23 Dose: 20 mg Carvedilol (Coreg) 12.5 mg PO DAILY [facility] Stop: 03/06/19 08:59 Last Admin: 01/07/19 09:22 Dose: 12.5 mg Enoxaparin Sodium (Lovenox) 40 mg SUBQ DAILY [facility] Stop: 03/06/19 08:59 Last Admin: 01/07/19 09:24 Dose: 40 mg Furosemide (Lasix) 40 mg IVP BID [facility] Stop: 03/06/19 08:59 Last Admin: 01/07/19 09:21 Dose: 40 mg Vancomycin HCl 1.5 gm/ Sodium (Chloride) 300 mls @ 150 mls/hr IV Q8H [facility] Stop: 03/08/19 16:59 Levofloxacin (Levaquin Pb) 500 mg in 100 mls @ 100 mls/hr IV Q24HR [facility] Stop: 03/08/19 11:59 Lisinopril (Zestril) 5 mg PO DAILY [facility] Stop: 03/07/19 08:59 Last Admin: 01/07/19 09:22 Dose: 5 mg Miscellaneous (Zosyn Iv Per Pharmacy) 1 [facility] PRN PRN PRN Reason: Suspected infection Stop: 03/07/19 05:08 Miscellaneous (Vancomycin Iv Per Pharmacy) 1 [facility] PRN PRN PRN Reason: PROTOCOL Stop: 03/07/19 08:48 Spironolactone (Aldactone) 50 mg PO DAILY [facility] Stop: 03/06/19 08:59 Last Admin: 01/07/19 09:22 Dose: 50 mg Infectious Disease Objective - Results Result Diagrams: 01/07/19 05:40 01/06/19 04:51 Recent Labs: Laboratory Last Values WBC 7.1 Th/cmm (4.8-10.8) 01/07/19 05:40 RBC 4.79 Mil/cmm (4.30-5.70) 01/07/19 05:40 Hgb 14.8 gm/dL (12-16) 01/07/19 05:40 Hct 44.6 % (41.0-60) 01/07/19 05:40 MCV 93.1 fl (80-99) 01/07/19 05:40 MCH 30.8 pg (26.0-30.0) H 01/07/19 05:40 MCHC Differential 33.1 pg (28.0-36.0) 01/07/19 05:40 RDW 14.7 % (11.5-20.0) 01/07/19 05:40 Plt Count 183 Th/cmm (150-400) 01/07/19 05:40 MPV 8.2 fl 01/07/19 05:40 Add Manual Diff YES 01/04/19 19:35 Neutrophils % 70.6 % (40.0-80.0) 01/07/19 05:40 Band Neutrophils % 0 % (0-10) 01/04/19 19:35 Lymphocytes % 13.2 % (20.0-50.0) L 01/07/19 05:40 Monocytes % 11.6 % (2.0-10.0) H 01/07/19 05:40 Eosinophils % 4.6 % (0.0-5.0) 01/07/19 05:40 Basophils % 0.0 % (0.0-2.0) 01/07/19 05:40 Neutrophils (Manual) 84 % (40-80) H 01/04/19 19:35 Lymphocytes 8 % (20-50) L 01/04/19 19:35 Monocytes 8 % (2-10) 01/04/19 19:35 Eosinophils 0 % (0-5) 01/04/19 19:35 Basophils 0 % (0-3) 01/04/19 19:35 Specimen Source ARTERIAL 01/05/19 00:30 Sample Site Right Radial 01/05/19 00:30 pH 7.38 (7.35-7.45) 01/05/19 00:30 pCO2 43.7 mmHg (35.0-45.0) 01/05/19 00:30 pO2 109.5 mmHg (80.0-100.0) H 01/05/19 00:30 HCO3 25.3 mEq/L (20.0-26.0) 01/05/19 00:30 Base Excess 0.0 mEq/L (-3.0-3.0) 01/05/19 00:30 O2 Saturation 97.9 % (92.0-100.0) 01/05/19 00:30 Javier Test Positive 01/05/19 00:30 Vent Rate N/A 01/05/19 00:30 Inspired O2 36 01/05/19 00:30 Tidal Volume N/A 01/05/19 00:30 PEEP N/A 01/05/19 00:30 Pressure (ins/psv/peep) N/A 01/05/19 00:30 Critical Value MM,DIRECTOR OF CONSULTING SERVICES 01/05/19 00:30 Sodium 133 mEq/L (136-145) L 01/06/19 04:51 Potassium 3.8 mEq/L (3.5-5.1) 01/06/19 04:51 Chloride 98 mEq/L (98-107) 01/06/19 04:51 Carbon Dioxide 27.0 mEq/L (21.0-31.0) 01/06/19 04:51 Anion Gap 11.8 (7.0-16.0) 01/06/19 04:51 BUN 20 mg/dL (7-25) 01/06/19 04:51 Creatinine 0.8 mg/dL (0.7-1.3) 01/06/19 04:51 Est GFR ( Amer) > 60.0 ml/min (>90) 01/06/19 04:51 Est GFR (Non-Af Amer) > 60.0 ml/min 01/06/19 04:51 BUN/Creatinine Ratio 25.0 01/06/19 04:51 Glucose 109 mg/dL (70-105) H 01/06/19 04:51 Calcium 8.9 mg/dL (8.6-10.3) 01/06/19 04:51 Phosphorus 3.2 mg/dL (2.5-5.0) 01/07/19 05:40 Magnesium 1.9 mg/dL (1.9-2.7) 01/07/19 05:40 Total Bilirubin 2.7 mg/dL (0.3-1.0) H 01/06/19 04:51 AST 24 U/L (13-39) 01/06/19 04:51 ALT 21 U/L (7-52) 01/06/19 04:51 Alkaline Phosphatase 93 U/L (34-104) 01/06/19 04:51 B-Natriuretic Peptide 671.0 pg/mL (5.0-100.0) H 01/06/19 04:51 Total Protein 7.0 gm/dL (6.0-8.3) 01/06/19 04:51 Albumin 3.4 gm/dL (4.2-5.5) L 01/06/19 04:51 Globulin 3.6 gm/dL 01/06/19 04:51 Albumin/Globulin Ratio 0.9 (1.0-1.8) L 01/06/19 04:51 Triglycerides 53 mg/dL (<150) 01/06/19 04:51 Cholesterol 91 mg/dL (<200) 01/06/19 04:51 LDL Cholesterol Direct 52 mg/dL (75-193) L 01/06/19 04:51 HDL Cholesterol 36 mg/dL (23-92) 01/06/19 04:51 TSH 0.03 uIU/ml (0.34-5.60) L 01/06/19 04:51 Urine Source CLEAN C 01/05/19 10:00 Urine Color YELLOW 01/05/19 10:00 Urine Clarity CLEAR (CLEAR) 01/05/19 10:00 Urine pH 6.0 (4.6 - 8.0) 01/05/19 10:00 Ur Specific [place] 1.010 (1.005-1.030) 01/05/19 10:00 Urine Protein NEGATIVE mg/dL (NEGATIVE) 01/05/19 10:00 Urine Glucose (UA) NEGATIVE mg/dL (NEGATIVE) 01/05/19 10:00 Urine Ketones NEGATIVE mg/dL (NEGATIVE) 01/05/19 10:00 Urine Blood NEGATIVE (NEGATIVE) 01/05/19 10:00 Urine Nitrate NEGATIVE (NEGATIVE) 01/05/19 10:00 Urine Bilirubin NEGATIVE (NEGATIVE) 01/05/19 10:00 Urine Urobilinogen 0.2 E.U./dL (0.2 - 1.0) 01/05/19 10:00 Ur Leukocyte Esterase NEGATIVE (NEGATIVE) 01/05/19 10:00 Vancomycin Trough 11.4 ug/mL (5-10) H 01/07/19 16:00 - Physical Exam Vitals and I&O: Vital Signs Temp 97.3 F 01/07/19 16:00 Pulse 58 01/07/19 16:00 Resp 25 01/07/19 16:00 BP 90/45 01/07/19 16:00 Pulse Ox 93 01/07/19 16:00 Intake & Output 01/06/19 01/07/19 01/07/19 18:59 06:59 18:59 Intake Total 2100 100 Output Total 205 1650 Balance 50 -1550 Weight (lbs) 136.305 kg 121.109 kg Intake: Intake, IV Amount 850 50 Piperacillin Sodium/ 100 50 Tazobact 3.375 gm In Sodium Chloride 0.9% 50 ml @ 100 mls/hr IV Q6HR [facility] Rx#:[id number] Vancomycin HCl 1.5 gm In 500 Sodium Chloride 0.9% 500 ml @ 250 mls/hr IV Q8HR@ 0100,0900,1700 [facility] Rx#: [id number] Oral 1250 50 Output: Urine 2049 1650 Other: # Voids 3 2 # Bowel Movements 2 2 Stool Characteristics Soft Soft Brown Formed Formed Brown Brown Weight Source Bedscale Bedscale Active Medications: Current Medications Acetaminophen (Tylenol) 650 mg PO Q4H PRN PRN Reason: Pain (Moderate) Stop: 03/07/19 14:17 Last Admin: 01/06/19 14:59 Dose: 650 mg Aspirin (Aspirin Chewable) 81 mg PO DAILY [facility] Stop: 03/06/19 08:59 Last Admin: 01/07/19 09:22 Dose: 81 mg Atorvastatin Calcium (Lipitor) 20 mg PO DAILY [facility]; Protocol Stop: 03/07/19 08:59 Last Admin: 01/07/19 09:23 Dose: 20 mg Carvedilol (Coreg) 12.5 mg PO DAILY [facility] Stop: 03/06/19 08:59 Last Admin: 01/07/19 09:22 Dose: 12.5 mg Enoxaparin Sodium (Lovenox) 40 mg SUBQ DAILY [facility] Stop: 03/06/19 08:59 Last Admin: 01/07/19 09:24 Dose: 40 mg Furosemide (Lasix) 40 mg IVP BID [facility] Stop: 03/06/19 08:59 Last Admin: 01/07/19 09:21 Dose: 40 mg Vancomycin HCl 1.5 gm/ Sodium (Chloride) 300 mls @ 150 mls/hr IV Q8H [facility] Stop: 03/08/19 16:59 Levofloxacin (Levaquin Pb) 500 mg in 100 mls @ 100 mls/hr IV Q24HR [facility] Stop: 03/08/19 11:59 Lisinopril (Zestril) 5 mg PO DAILY [facility] Stop: 03/07/19 08:59 Last Admin: 01/07/19 09:22 Dose: 5 mg Miscellaneous (Zosyn Iv Per Pharmacy) 1 [facility] PRN PRN PRN Reason: Suspected infection Stop: 03/07/19 05:08 Miscellaneous (Vancomycin Iv Per Pharmacy) 1 [facility] PRN PRN PRN Reason: PROTOCOL Stop: 03/07/19 08:48 Spironolactone (Aldactone) 50 mg PO DAILY [facility] Stop: 03/06/19 08:59 Last Admin: 01/07/19 09:22 Dose: 50 mg - Procedures Procedures: Procedures Procedure Code Date DRAINAGE OF STOMACH WITH DRAINAGE DEVICE, VIA OPENING [id number] 08/17/16 EXCISION OF GREATER OMENTUM, OPEN APPROACH [id number] 08/17/16 REPAIR ABDOMINAL WALL, OPEN APPROACH [id number] 08/17/16 Infectious Disease Assmt/Plan - Problem List Patient Problems: All Active Problems SEVERE DYSPNEA AND COUGH AND PEDAL EDEMA (Acute)
--- NOTE | 2019-01-07 19:39 | Internal Medicine Prog Note ---
Internal Medicine Subjective - Subjective Service Date: 01/07/19 Patient seen and examined:: without staff (HE DENIES ANY CHEST PAIN) Patient is:: awake, verbal, in bed, talking Per staff patient has:: no adverse event Internal Medicine Objective - Results Result Diagrams: 01/07/19 05:40 01/06/19 04:51 Recent Labs: Laboratory Last Values WBC 7.1 Th/cmm (4.8-10.8) 01/07/19 05:40 RBC 4.79 Mil/cmm (4.30-5.70) 01/07/19 05:40 Hgb 14.8 gm/dL (12-16) 01/07/19 05:40 Hct 44.6 % (41.0-60) 01/07/19 05:40 MCV 93.1 fl (80-99) 01/07/19 05:40 MCH 30.8 pg (26.0-30.0) H 01/07/19 05:40 MCHC Differential 33.1 pg (28.0-36.0) 01/07/19 05:40 RDW 14.7 % (11.5-20.0) 01/07/19 05:40 Plt Count 183 Th/cmm (150-400) 01/07/19 05:40 MPV 8.2 fl 01/07/19 05:40 Add Manual Diff YES 01/04/19 19:35 Neutrophils % 70.6 % (40.0-80.0) 01/07/19 05:40 Band Neutrophils % 0 % (0-10) 01/04/19 19:35 Lymphocytes % 13.2 % (20.0-50.0) L 01/07/19 05:40 Monocytes % 11.6 % (2.0-10.0) H 01/07/19 05:40 Eosinophils % 4.6 % (0.0-5.0) 01/07/19 05:40 Basophils % 0.0 % (0.0-2.0) 01/07/19 05:40 Neutrophils (Manual) 84 % (40-80) H 01/04/19 19:35 Lymphocytes 8 % (20-50) L 01/04/19 19:35 Monocytes 8 % (2-10) 01/04/19 19:35 Eosinophils 0 % (0-5) 01/04/19 19:35 Basophils 0 % (0-3) 01/04/19 19:35 Specimen Source ARTERIAL 01/05/19 00:30 Sample Site Right Radial 01/05/19 00:30 pH 7.38 (7.35-7.45) 01/05/19 00:30 pCO2 43.7 mmHg (35.0-45.0) 01/05/19 00:30 pO2 109.5 mmHg (80.0-100.0) H 01/05/19 00:30 HCO3 25.3 mEq/L (20.0-26.0) 01/05/19 00:30 Base Excess 0.0 mEq/L (-3.0-3.0) 01/05/19 00:30 O2 Saturation 97.9 % (92.0-100.0) 01/05/19 00:30 Javier Test Positive 01/05/19 00:30 Vent Rate N/A 01/05/19 00:30 Inspired O2 36 01/05/19 00:30 Tidal Volume N/A 01/05/19 00:30 PEEP N/A 01/05/19 00:30 Pressure (ins/psv/peep) N/A 01/05/19 00:30 Critical Value MM,SUPERVISOR BORDER DEPARTMENT 01/05/19 00:30 Sodium 133 mEq/L (136-145) L 01/06/19 04:51 Potassium 3.8 mEq/L (3.5-5.1) 01/06/19 04:51 Chloride 98 mEq/L (98-107) 01/06/19 04:51 Carbon Dioxide 27.0 mEq/L (21.0-31.0) 01/06/19 04:51 Anion Gap 11.8 (7.0-16.0) 01/06/19 04:51 BUN 20 mg/dL (7-25) 01/06/19 04:51 Creatinine 0.8 mg/dL (0.7-1.3) 01/06/19 04:51 Est GFR ( Amer) > 60.0 ml/min (>90) 01/06/19 04:51 Est GFR (Non-Af Amer) > 60.0 ml/min 01/06/19 04:51 BUN/Creatinine Ratio 25.0 01/06/19 04:51 Glucose 109 mg/dL (70-105) H 01/06/19 04:51 Calcium 8.9 mg/dL (8.6-10.3) 01/06/19 04:51 Phosphorus 3.2 mg/dL (2.5-5.0) 01/07/19 05:40 Magnesium 1.9 mg/dL (1.9-2.7) 01/07/19 05:40 Total Bilirubin 2.7 mg/dL (0.3-1.0) H 01/06/19 04:51 AST 24 U/L (13-39) 01/06/19 04:51 ALT 21 U/L (7-52) 01/06/19 04:51 Alkaline Phosphatase 93 U/L (34-104) 01/06/19 04:51 B-Natriuretic Peptide 671.0 pg/mL (5.0-100.0) H 01/06/19 04:51 Total Protein 7.0 gm/dL (6.0-8.3) 01/06/19 04:51 Albumin 3.4 gm/dL (4.2-5.5) L 01/06/19 04:51 Globulin 3.6 gm/dL 01/06/19 04:51 Albumin/Globulin Ratio 0.9 (1.0-1.8) L 01/06/19 04:51 Triglycerides 53 mg/dL (<150) 01/06/19 04:51 Cholesterol 91 mg/dL (<200) 01/06/19 04:51 LDL Cholesterol Direct 52 mg/dL (75-193) L 01/06/19 04:51 HDL Cholesterol 36 mg/dL (23-92) 01/06/19 04:51 TSH 0.03 uIU/ml (0.34-5.60) L 01/06/19 04:51 Urine Source CLEAN C 01/05/19 10:00 Urine Color YELLOW 01/05/19 10:00 Urine Clarity CLEAR (CLEAR) 01/05/19 10:00 Urine pH 6.0 (4.6 - 8.0) 01/05/19 10:00 Ur Specific [place] 1.010 (1.005-1.030) 01/05/19 10:00 Urine Protein NEGATIVE mg/dL (NEGATIVE) 01/05/19 10:00 Urine Glucose (UA) NEGATIVE mg/dL (NEGATIVE) 01/05/19 10:00 Urine Ketones NEGATIVE mg/dL (NEGATIVE) 01/05/19 10:00 Urine Blood NEGATIVE (NEGATIVE) 01/05/19 10:00 Urine Nitrate NEGATIVE (NEGATIVE) 01/05/19 10:00 Urine Bilirubin NEGATIVE (NEGATIVE) 01/05/19 10:00 Urine Urobilinogen 0.2 E.U./dL (0.2 - 1.0) 01/05/19 10:00 Ur Leukocyte Esterase NEGATIVE (NEGATIVE) 01/05/19 10:00 Vancomycin Trough 11.4 ug/mL (5-10) H 01/07/19 16:00 - Physical Exam Vitals and I&O: Vital Signs Temp 97.3 F 01/07/19 16:00 Pulse 58 01/07/19 16:00 Resp 19 01/07/19 19:00 BP 90/45 01/07/19 16:00 Pulse Ox 93 01/07/19 16:00 Intake & Output 01/07/19 01/07/19 01/08/19 06:59 18:59 06:59 Intake Total 100 Output Total 1650 Balance -1550 Weight (lbs) 121.109 kg Intake: Intake, IV Amount 50 Piperacillin Sodium/ 50 Tazobact 3.375 gm In Sodium Chloride 0.9% 50 ml @ 100 mls/hr IV Q6HR [facility] Rx#:[id number] Oral 50 Output: Urine 1650 Other: # Voids 2 # Bowel Movements 2 Stool Characteristics Soft Brown Brown Formed Brown Weight Source Bedscale Active Medications: Current Medications Acetaminophen (Tylenol) 650 mg PO Q4H PRN PRN Reason: Pain (Moderate) Stop: 03/07/19 14:17 Last Admin: 01/06/19 14:59 Dose: 650 mg Aspirin (Aspirin Chewable) 81 mg PO DAILY [facility] Stop: 03/06/19 08:59 Last Admin: 01/07/19 09:22 Dose: 81 mg Atorvastatin Calcium (Lipitor) 20 mg PO DAILY [facility]; Protocol Stop: 03/07/19 08:59 Last Admin: 01/07/19 09:23 Dose: 20 mg Carvedilol (Coreg) 12.5 mg PO DAILY [facility] Stop: 03/06/19 08:59 Last Admin: 01/07/19 09:22 Dose: 12.5 mg Enoxaparin Sodium (Lovenox) 40 mg SUBQ DAILY [facility] Stop: 03/06/19 08:59 Last Admin: 01/07/19 09:24 Dose: 40 mg Furosemide (Lasix) 40 mg IVP BID [facility] Stop: 03/06/19 08:59 Last Admin: 01/07/19 09:21 Dose: 40 mg Vancomycin HCl 1.5 gm/ Sodium (Chloride) 300 mls @ 150 mls/hr IV Q8H [facility] Stop: 03/08/19 16:59 Levofloxacin (Levaquin Pb) 500 mg in 100 mls @ 100 mls/hr IV Q24HR [facility] Stop: 03/08/19 11:59 Lisinopril (Zestril) 5 mg PO DAILY [facility] Stop: 03/07/19 08:59 Last Admin: 01/07/19 09:22 Dose: 5 mg Miscellaneous (Zosyn Iv Per Pharmacy) 1 [facility] PRN PRN PRN Reason: Suspected infection Stop: 03/07/19 05:08 Miscellaneous (Vancomycin Iv Per Pharmacy) 1 [facility] PRN PRN PRN Reason: PROTOCOL Stop: 03/07/19 08:48 Spironolactone (Aldactone) 50 mg PO DAILY [facility] Stop: 03/06/19 08:59 Last Admin: 01/07/19 09:22 Dose: 50 mg General: alert, obese HEENT: NC/AT, PERRLA, EOMI, anicteric sclerae, throat clear Neck: Supple, No JVD, No thyromegaly, +2 carotid pulse wo bruit, No LAD Cardiovascular: RRR, Normal S1, Normal S2, without murmur Abdomen: soft, non-tender, non-distended Extremities: edema Neurological: no change, alert - Procedures Procedures: Procedures Procedure Code Date DRAINAGE OF STOMACH WITH DRAINAGE DEVICE, VIA OPENING [id number] 08/17/16 EXCISION OF GREATER OMENTUM, OPEN APPROACH [id number] 08/17/16 REPAIR ABDOMINAL WALL, OPEN APPROACH [id number] 08/17/16 Internal Medicine Assmt/Plan - Assessment Assessment: 1.ACUTE EXACERBATION OF CHF. 2.MORBID OBESITY. 3.CELLULITES OF LOWER EXTREMETIES. 4.SLEEPING APNEA. 5.CARDIOMYOPATHY WITH EF 10/ - Plan Plan: CONFERENCE CONCIERGE AND JOINT SUPERVISOR TO TRANSFER HIM TO HIGHER LEVEL OF CARE.
[2019-01-07] MEDS: Levofloxacin 500mg/100mL 500 MG/100 ML BAG IV SCH (19:43)
--- NOTE | 2019-01-08 01:52 | Consultation ---
DATE OF CONSULTATION: 01/06/2019 PRIMARY CARE PHYSICIAN: Dr. Hanna. HISTORY OF PRESENT ILLNESS: This is a 43-year-old male who was brought to the Emergency Room with complaint of shortness of breath. The patient has a history of obstructive sleep apnea, put on BiPAP. Also, the patient has leg cellulitis and swelling of the right leg. Venous duplex ordered. Infectious consultation was called for further treatment. PAST MEDICAL HISTORY: Hernia surgery, obstructive sleep apnea, hypertension, cardiomyopathy, coronary artery disease. FAMILY HISTORY: Negative. SOCIAL HISTORY: The patient is nonsmoker. ALLERGIES: No allergies. REVIEW OF SYSTEMS: A 14-point review of system negative except above. PHYSICAL EXAMINATION: GENERAL: The patient on BiPAP, well-nourished male. VITAL SIGNS: Temperature 97.6, pulse 82, respiration 19, blood pressure 116/77. HEENT: Mild pallor, no icterus or plaque. NECK: Supple. No thyromegaly. LUNGS: Breath sounds bilaterally. CARDIOVASCULAR: S1. ABDOMEN: Soft, bowel sounds, no cervical lymph nodes. Both legs, there is folliculitis. Right leg is swollen. LABORATORY DATA: Cultures are negative so far. Chest x-ray on admission, left basilar infiltrate. DIAGNOSES: Leg cellulitis, pneumonia, obstructive sleep apnea, respiratory failure, on BiPAP. The patient's Zosyn changed to Levaquin. Continue vancomycin, supportive care. The patient already on Lasix 40 IV every 12 hours. Cardiology consultation done by Dr. Tomas Goddard. Sputum culture. Rest of the care as ordered in [facility]PO[facility]. Thank you Dr. Hanna for this consultation. JOB# [id number]
[2019-01-08 05:46] LABS: ANION GAP 11.2 (7.0-16.0); BUN - UREA NITROGEN 21 mg/dL (7-25); CALCIUM SERUM 9.1 mg/dL (8.6-10.3); CARBON DIOXIDE 29.8 mEq/L (21.0-31.0); CHLORIDE 98 mEq/L (98-107); GFR AFRICAN-AMERICAN > 60.0 ml/min (>90); GFR NON AFRICAN-AMERICAN > 60.0 ml/min; GLUCOSE 90 mg/dL (70-105); SODIUM SERUM 135 mEq/L (136-145)
[2019-01-08] MEDS: Atorvastatin Calcium 10 MG TAB PO SCH (09:20)
[2019-01-08] MEDS: Aspirin 81mg Chewable Tab PO SCH (09:20)
[2019-01-08] MEDS: Enoxaparin 40 mg/0.4 mL 0.4mL Syr SUBQ SCH (09:21)
--- NOTE | 2019-01-08 10:52 | Internal Medicine Prog Note ---
Internal Medicine Subjective - Subjective Service Date: 01/08/19 Patient seen and examined:: without staff (HE FEELS BETTER,NO SOB OR CHEST PAIN. ) Patient is:: awake, verbal, in bed, talking Per staff patient has:: no adverse event Internal Medicine Objective - Results Result Diagrams: 01/07/19 05:40 01/08/19 05:10 Recent Labs: Laboratory Last Values WBC 7.1 Th/cmm (4.8-10.8) 01/07/19 05:40 RBC 4.79 Mil/cmm (4.30-5.70) 01/07/19 05:40 Hgb 14.8 gm/dL (12-16) 01/07/19 05:40 Hct 44.6 % (41.0-60) 01/07/19 05:40 MCV 93.1 fl (80-99) 01/07/19 05:40 MCH 30.8 pg (26.0-30.0) H 01/07/19 05:40 MCHC Differential 33.1 pg (28.0-36.0) 01/07/19 05:40 RDW 14.7 % (11.5-20.0) 01/07/19 05:40 Plt Count 183 Th/cmm (150-400) 01/07/19 05:40 MPV 8.2 fl 01/07/19 05:40 Add Manual Diff YES 01/04/19 19:35 Neutrophils % 70.6 % (40.0-80.0) 01/07/19 05:40 Band Neutrophils % 0 % (0-10) 01/04/19 19:35 Lymphocytes % 13.2 % (20.0-50.0) L 01/07/19 05:40 Monocytes % 11.6 % (2.0-10.0) H 01/07/19 05:40 Eosinophils % 4.6 % (0.0-5.0) 01/07/19 05:40 Basophils % 0.0 % (0.0-2.0) 01/07/19 05:40 Neutrophils (Manual) 84 % (40-80) H 01/04/19 19:35 Lymphocytes 8 % (20-50) L 01/04/19 19:35 Monocytes 8 % (2-10) 01/04/19 19:35 Eosinophils 0 % (0-5) 01/04/19 19:35 Basophils 0 % (0-3) 01/04/19 19:35 Specimen Source ARTERIAL 01/05/19 00:30 Sample Site Right Radial 01/05/19 00:30 pH 7.38 (7.35-7.45) 01/05/19 00:30 pCO2 43.7 mmHg (35.0-45.0) 01/05/19 00:30 pO2 109.5 mmHg (80.0-100.0) H 01/05/19 00:30 HCO3 25.3 mEq/L (20.0-26.0) 01/05/19 00:30 Base Excess 0.0 mEq/L (-3.0-3.0) 01/05/19 00:30 O2 Saturation 97.9 % (92.0-100.0) 01/05/19 00:30 Javier Test Positive 01/05/19 00:30 Vent Rate N/A 01/05/19 00:30 Inspired O2 36 01/05/19 00:30 Tidal Volume N/A 01/05/19 00:30 PEEP N/A 01/05/19 00:30 Pressure (ins/psv/peep) N/A 01/05/19 00:30 Critical Value MM,BLANKET WINDER HELPER 01/05/19 00:30 Sodium 135 mEq/L (136-145) L 01/08/19 05:10 Potassium 4.0 mEq/L (3.5-5.1) 01/08/19 05:10 Chloride 98 mEq/L (98-107) 01/08/19 05:10 Carbon Dioxide 29.8 mEq/L (21.0-31.0) 01/08/19 05:10 Anion Gap 11.2 (7.0-16.0) 01/08/19 05:10 BUN 21 mg/dL (7-25) 01/08/19 05:10 Creatinine 1.0 mg/dL (0.7-1.3) 01/08/19 05:10 Est GFR ( Amer) > 60.0 ml/min (>90) 01/08/19 05:10 Est GFR (Non-Af Amer) > 60.0 ml/min 01/08/19 05:10 BUN/Creatinine Ratio 21.0 01/08/19 05:10 Glucose 90 mg/dL (70-105) 01/08/19 05:10 Calcium 9.1 mg/dL (8.6-10.3) 01/08/19 05:10 Phosphorus 3.2 mg/dL (2.5-5.0) 01/07/19 05:40 Magnesium 1.9 mg/dL (1.9-2.7) 01/07/19 05:40 Total Bilirubin 2.7 mg/dL (0.3-1.0) H 01/06/19 04:51 AST 24 U/L (13-39) 01/06/19 04:51 ALT 21 U/L (7-52) 01/06/19 04:51 Alkaline Phosphatase 93 U/L (34-104) 01/06/19 04:51 B-Natriuretic Peptide 663.0 pg/mL (5.0-100.0) H 01/08/19 05:10 Total Protein 7.0 gm/dL (6.0-8.3) 01/06/19 04:51 Albumin 3.4 gm/dL (4.2-5.5) L 01/06/19 04:51 Globulin 3.6 gm/dL 01/06/19 04:51 Albumin/Globulin Ratio 0.9 (1.0-1.8) L 01/06/19 04:51 Triglycerides 53 mg/dL (<150) 01/06/19 04:51 Cholesterol 91 mg/dL (<200) 01/06/19 04:51 LDL Cholesterol Direct 52 mg/dL (75-193) L 01/06/19 04:51 HDL Cholesterol 36 mg/dL (23-92) 01/06/19 04:51 TSH 0.03 uIU/ml (0.34-5.60) L 01/06/19 04:51 Urine Source CLEAN C 01/05/19 10:00 Urine Color YELLOW 01/05/19 10:00 Urine Clarity CLEAR (CLEAR) 01/05/19 10:00 Urine pH 6.0 (4.6 - 8.0) 01/05/19 10:00 Ur Specific [place] 1.010 (1.005-1.030) 01/05/19 10:00 Urine Protein NEGATIVE mg/dL (NEGATIVE) 01/05/19 10:00 Urine Glucose (UA) NEGATIVE mg/dL (NEGATIVE) 01/05/19 10:00 Urine Ketones NEGATIVE mg/dL (NEGATIVE) 01/05/19 10:00 Urine Blood NEGATIVE (NEGATIVE) 01/05/19 10:00 Urine Nitrate NEGATIVE (NEGATIVE) 01/05/19 10:00 Urine Bilirubin NEGATIVE (NEGATIVE) 01/05/19 10:00 Urine Urobilinogen 0.2 E.U./dL (0.2 - 1.0) 01/05/19 10:00 Ur Leukocyte Esterase NEGATIVE (NEGATIVE) 01/05/19 10:00 Vancomycin Trough 11.4 ug/mL (5-10) H 01/07/19 16:00 - Physical Exam Vitals and I&O: Vital Signs Temp 98.2 F 01/08/19 04:00 Pulse 82 01/08/19 09:20 Resp 18 01/08/19 07:10 BP 147/92 01/08/19 09:20 Pulse Ox 98 01/08/19 07:10 Intake & Output 01/07/19 01/08/19 01/08/19 18:59 06:59 18:59 Intake Total 100 Balance 100 Weight (lbs) 135.851 kg 135.851 kg Intake: Oral 100 Other: # Voids 2 # Bowel Movements 1 Stool Characteristics Brown Brown Weight Source Bedscale Bedscale Active Medications: Current Medications Acetaminophen (Tylenol) 650 mg PO Q4H PRN PRN Reason: Pain (Moderate) Stop: 03/07/19 14:17 Last Admin: 01/06/19 14:59 Dose: 650 mg Aspirin (Aspirin Chewable) 81 mg PO DAILY [facility] Stop: 03/06/19 08:59 Last Admin: 01/08/19 09:20 Dose: 81 mg Atorvastatin Calcium (Lipitor) 20 mg PO DAILY [facility]; Protocol Stop: 03/07/19 08:59 Last Admin: 01/08/19 09:20 Dose: 20 mg Carvedilol (Coreg) 12.5 mg PO DAILY [facility] Stop: 03/06/19 08:59 Enoxaparin Sodium (Lovenox) 40 mg SUBQ DAILY [facility] Stop: 03/06/19 08:59 Last Admin: 01/08/19 09:21 Dose: 40 mg Furosemide (Lasix) 40 mg IVP BID [facility] Stop: 03/06/19 08:59 Last Admin: 01/08/19 09:19 Dose: 40 mg Vancomycin HCl 1.5 gm/ Sodium (Chloride) 300 mls @ 150 mls/hr IV Q8H [facility] Stop: 03/08/19 16:59 Last Admin: 01/08/19 09:19 Dose: 150 mls/hr Levofloxacin (Levaquin Pb) 500 mg in 100 mls @ 100 mls/hr IV Q24HR [facility] Stop: 03/08/19 11:59 Last Admin: 01/07/19 19:43 Dose: 100 mls/hr Lisinopril (Zestril) 5 mg PO DAILY [facility] Stop: 03/07/19 08:59 Last Admin: 01/08/19 09:20 Dose: 5 mg Miscellaneous (Zosyn Iv Per Pharmacy) 1 [facility] PRN PRN PRN Reason: Suspected infection Stop: 03/07/19 05:08 Miscellaneous (Vancomycin Iv Per Pharmacy) 1 [facility] PRN PRN PRN Reason: PROTOCOL Stop: 03/07/19 08:48 Spironolactone (Aldactone) 50 mg PO DAILY [facility] Stop: 03/06/19 08:59 Last Admin: 01/08/19 09:20 Dose: 50 mg General: alert, obese HEENT: NC/AT, PERRLA, EOMI, anicteric sclerae, throat clear Neck: Supple, No JVD, No thyromegaly, +2 carotid pulse wo bruit, No LAD Cardiovascular: RRR, Normal S1, Normal S2, without murmur Abdomen: soft, non-tender, non-distended Extremities: edema Neurological: no change, alert - Procedures Procedures: Procedures Procedure Code Date DRAINAGE OF STOMACH WITH DRAINAGE DEVICE, VIA OPENING [id number] 08/17/16 EXCISION OF GREATER OMENTUM, OPEN APPROACH [id number] 08/17/16 REPAIR ABDOMINAL WALL, OPEN APPROACH [id number] 08/17/16 Internal Medicine Assmt/Plan - Assessment Assessment: 1.ACUTE EXACERBATION OF CHF. 2.MORBID OBESITY. 3.CELLULITES OF LOWER EXTREMETIES. 4.SLEEPING APNEA. 5.CARDIOMYOPATHY WITH EF 10/ - Plan Plan: CUSTOMER SERVICE REPRESENTATIVE TEACHER AND RAYON WINDER TO TRANSFER HIM TO HIGHER LEVEL OF CARE.THE CASE WILL DW RAYON WINDER.
--- NOTE | 2019-01-08 11:38 | General Progress Note ---
Subjective - Review of Systems Service Date: 01/08/19 Subjective: Patient has less shortness of breath still swelling in both lower extremity Objective - Results Result Diagrams: 01/07/19 05:40 01/08/19 05:10 Recent Labs: Laboratory Last Values WBC 7.1 Th/cmm (4.8-10.8) 01/07/19 05:40 RBC 4.79 Mil/cmm (4.30-5.70) 01/07/19 05:40 Hgb 14.8 gm/dL (12-16) 01/07/19 05:40 Hct 44.6 % (41.0-60) 01/07/19 05:40 MCV 93.1 fl (80-99) 01/07/19 05:40 MCH 30.8 pg (26.0-30.0) H 01/07/19 05:40 MCHC Differential 33.1 pg (28.0-36.0) 01/07/19 05:40 RDW 14.7 % (11.5-20.0) 01/07/19 05:40 Plt Count 183 Th/cmm (150-400) 01/07/19 05:40 MPV 8.2 fl 01/07/19 05:40 Add Manual Diff YES 01/04/19 19:35 Neutrophils % 70.6 % (40.0-80.0) 01/07/19 05:40 Band Neutrophils % 0 % (0-10) 01/04/19 19:35 Lymphocytes % 13.2 % (20.0-50.0) L 01/07/19 05:40 Monocytes % 11.6 % (2.0-10.0) H 01/07/19 05:40 Eosinophils % 4.6 % (0.0-5.0) 01/07/19 05:40 Basophils % 0.0 % (0.0-2.0) 01/07/19 05:40 Neutrophils (Manual) 84 % (40-80) H 01/04/19 19:35 Lymphocytes 8 % (20-50) L 01/04/19 19:35 Monocytes 8 % (2-10) 01/04/19 19:35 Eosinophils 0 % (0-5) 01/04/19 19:35 Basophils 0 % (0-3) 01/04/19 19:35 Specimen Source ARTERIAL 01/05/19 00:30 Sample Site Right Radial 01/05/19 00:30 pH 7.38 (7.35-7.45) 01/05/19 00:30 pCO2 43.7 mmHg (35.0-45.0) 01/05/19 00:30 pO2 109.5 mmHg (80.0-100.0) H 01/05/19 00:30 HCO3 25.3 mEq/L (20.0-26.0) 01/05/19 00:30 Base Excess 0.0 mEq/L (-3.0-3.0) 01/05/19 00:30 O2 Saturation 97.9 % (92.0-100.0) 01/05/19 00:30 Javier Test Positive 01/05/19 00:30 Vent Rate N/A 01/05/19 00:30 Inspired O2 36 01/05/19 00:30 Tidal Volume N/A 01/05/19 00:30 PEEP N/A 01/05/19 00:30 Pressure (ins/psv/peep) N/A 01/05/19 00:30 Critical Value MM,LAND RESOURCE SPECIALIST 01/05/19 00:30 Sodium 135 mEq/L (136-145) L 01/08/19 05:10 Potassium 4.0 mEq/L (3.5-5.1) 01/08/19 05:10 Chloride 98 mEq/L (98-107) 01/08/19 05:10 Carbon Dioxide 29.8 mEq/L (21.0-31.0) 01/08/19 05:10 Anion Gap 11.2 (7.0-16.0) 01/08/19 05:10 BUN 21 mg/dL (7-25) 01/08/19 05:10 Creatinine 1.0 mg/dL (0.7-1.3) 01/08/19 05:10 Est GFR ( Amer) > 60.0 ml/min (>90) 01/08/19 05:10 Est GFR (Non-Af Amer) > 60.0 ml/min 01/08/19 05:10 BUN/Creatinine Ratio 21.0 01/08/19 05:10 Glucose 90 mg/dL (70-105) 01/08/19 05:10 Calcium 9.1 mg/dL (8.6-10.3) 01/08/19 05:10 Phosphorus 3.2 mg/dL (2.5-5.0) 01/07/19 05:40 Magnesium 1.9 mg/dL (1.9-2.7) 01/07/19 05:40 Total Bilirubin 2.7 mg/dL (0.3-1.0) H 01/06/19 04:51 AST 24 U/L (13-39) 01/06/19 04:51 ALT 21 U/L (7-52) 01/06/19 04:51 Alkaline Phosphatase 93 U/L (34-104) 01/06/19 04:51 B-Natriuretic Peptide 663.0 pg/mL (5.0-100.0) H 01/08/19 05:10 Total Protein 7.0 gm/dL (6.0-8.3) 01/06/19 04:51 Albumin 3.4 gm/dL (4.2-5.5) L 01/06/19 04:51 Globulin 3.6 gm/dL 01/06/19 04:51 Albumin/Globulin Ratio 0.9 (1.0-1.8) L 01/06/19 04:51 Triglycerides 53 mg/dL (<150) 01/06/19 04:51 Cholesterol 91 mg/dL (<200) 01/06/19 04:51 LDL Cholesterol Direct 52 mg/dL (75-193) L 01/06/19 04:51 HDL Cholesterol 36 mg/dL (23-92) 01/06/19 04:51 TSH 0.03 uIU/ml (0.34-5.60) L 01/06/19 04:51 Urine Source CLEAN C 01/05/19 10:00 Urine Color YELLOW 01/05/19 10:00 Urine Clarity CLEAR (CLEAR) 01/05/19 10:00 Urine pH 6.0 (4.6 - 8.0) 01/05/19 10:00 Ur Specific [place] 1.010 (1.005-1.030) 01/05/19 10:00 Urine Protein NEGATIVE mg/dL (NEGATIVE) 01/05/19 10:00 Urine Glucose (UA) NEGATIVE mg/dL (NEGATIVE) 01/05/19 10:00 Urine Ketones NEGATIVE mg/dL (NEGATIVE) 01/05/19 10:00 Urine Blood NEGATIVE (NEGATIVE) 01/05/19 10:00 Urine Nitrate NEGATIVE (NEGATIVE) 01/05/19 10:00 Urine Bilirubin NEGATIVE (NEGATIVE) 01/05/19 10:00 Urine Urobilinogen 0.2 E.U./dL (0.2 - 1.0) 01/05/19 10:00 Ur Leukocyte Esterase NEGATIVE (NEGATIVE) 01/05/19 10:00 Vancomycin Trough 11.4 ug/mL (5-10) H 01/07/19 16:00 - Physical Exam Vitals and I&O: Vital Signs Temp 98.2 F 01/08/19 04:00 Pulse 82 01/08/19 09:20 Resp 18 01/08/19 07:10 BP 147/92 01/08/19 09:20 Pulse Ox 98 01/08/19 07:10 Intake & Output 01/07/19 01/08/19 01/08/19 18:59 06:59 18:59 Intake Total 100 Balance 100 Weight (lbs) 135.851 kg 135.851 kg Intake: Oral 100 Other: # Voids 2 # Bowel Movements 1 Stool Characteristics Brown Brown Weight Source Bedscale Bedscale Active Medications: Current Medications Acetaminophen (Tylenol) 650 mg PO Q4H PRN PRN Reason: Pain (Moderate) Stop: 03/07/19 14:17 Last Admin: 01/06/19 14:59 Dose: 650 mg Aspirin (Aspirin Chewable) 81 mg PO DAILY [facility] Stop: 03/06/19 08:59 Last Admin: 01/08/19 09:20 Dose: 81 mg Atorvastatin Calcium (Lipitor) 20 mg PO DAILY [facility]; Protocol Stop: 03/07/19 08:59 Last Admin: 01/08/19 09:20 Dose: 20 mg Carvedilol (Coreg) 12.5 mg PO DAILY [facility] Stop: 03/06/19 08:59 Enoxaparin Sodium (Lovenox) 40 mg SUBQ DAILY [facility] Stop: 03/06/19 08:59 Last Admin: 01/08/19 09:21 Dose: 40 mg Furosemide (Lasix) 40 mg IVP BID [facility] Stop: 03/06/19 08:59 Last Admin: 01/08/19 09:19 Dose: 40 mg Vancomycin HCl 1.5 gm/ Sodium (Chloride) 300 mls @ 150 mls/hr IV Q8H [facility] Stop: 03/08/19 16:59 Last Admin: 01/08/19 09:19 Dose: 150 mls/hr Levofloxacin (Levaquin Pb) 500 mg in 100 mls @ 100 mls/hr IV Q24HR [facility] Stop: 03/08/19 11:59 Last Admin: 01/07/19 19:43 Dose: 100 mls/hr Lisinopril (Zestril) 5 mg PO DAILY [facility] Stop: 03/07/19 08:59 Last Admin: 01/08/19 09:20 Dose: 5 mg Miscellaneous (Zosyn Iv Per Pharmacy) 1 [facility] PRN PRN PRN Reason: Suspected infection Stop: 03/07/19 05:08 Miscellaneous (Vancomycin Iv Per Pharmacy) 1 [facility] PRN PRN PRN Reason: PROTOCOL Stop: 03/07/19 08:48 Spironolactone (Aldactone) 50 mg PO DAILY [facility] Stop: 03/06/19 08:59 Last Admin: 01/08/19 09:20 Dose: 50 mg General: Alert HEENT: Mucous membr. moist/pink Neck: Supple, JVD (10 cm post tunnel angle), +2 carotid pulse wo bruit Cardiovascular: Regular rate, Normal S1, Normal S2, Systolic murmurs, Other ( cardiomyopathy) Lungs: Normal air movement, Other (rales) Abdomen: Bowel sounds, Soft, Obese Extremities: Edema, Other (cellulitis in both the legs) Neurological: Normal gait, Normal speech, Normal tone, Reflexes 2+ - Procedures Procedures: Procedures Procedure Code Date DRAINAGE OF STOMACH WITH DRAINAGE DEVICE, VIA OPENING [id number] 08/17/16 EXCISION OF GREATER OMENTUM, OPEN APPROACH [id number] 08/17/16 REPAIR ABDOMINAL WALL, OPEN APPROACH [id number] 08/17/16 Assessment/Plan - Problem List Patient Problems: All Active Problems SEVERE DYSPNEA AND COUGH AND PEDAL EDEMA (Acute) - Assessment Assessment: Congestive heart failure systolic dysfunction and acute Severe cardiomyopathy Hypertension Hyperlipidemia Cellulitis both legs Morbid obesity Obstructive sleep apnea Echocardiogram ejection fraction 10% minimal hypertrophy of the left ventricle left atrial enlargement moderate mitral regurgitation mild tricuspid regurgitation mild pulmonary regurgitation - Plan Plan: Continue IV antibiotic Lasix and get an echocardiogram report noted
[2019-01-08] MEDS: Levofloxacin 500mg/100mL 500 MG/100 ML BAG IV SCH (12:19)
[2019-01-09 07:02] LABS: ANION GAP 12.2 (7.0-16.0); BUN - UREA NITROGEN 19 mg/dL (7-25); CALCIUM SERUM 9.1 mg/dL (8.6-10.3); CHLORIDE 100 mEq/L (98-107); CREATININE - SERUM 0.8 mg/dL (0.7-1.3); GFR AFRICAN-AMERICAN > 60.0 ml/min (>90); GFR NON AFRICAN-AMERICAN > 60.0 ml/min; GLUCOSE 94 mg/dL (70-105); POTASSIUM SERUM 4.2 mEq/L (3.5-5.1); SODIUM SERUM 135 mEq/L (136-145)
[2019-01-09] MEDS: Atorvastatin Calcium 10 MG TAB PO SCH (09:09)
[2019-01-09] MEDS: Aspirin 81mg Chewable Tab PO SCH (09:10)
[2019-01-09] MEDS: Enoxaparin 40 mg/0.4 mL 0.4mL Syr SUBQ SCH (09:11)
--- NOTE | 2019-01-09 11:30 | Infectious Disease Prog Note ---
Infectious Disease Subjective - Review of Systems Service Date: 01/08/19 Events since last encounter: cc cellulitis/pn hpi- cx neg, breathing better 4ros no efvr o.e vss chaest vesicular abd soft ext cellulitis decresed Vital Signs - 24 hr 01/08/19 01/08/19 01/08/19 12:00 15:00 16:01 Temp 98.6 F 98.5 F HR 56 61 RR 20 18 20 BP 104/61 112/68 O2 Sat % 95 95 01/08/19 01/08/19 01/08/19 16:50 18:25 20:00 Temp 97.9 F HR 54 RR 20 18 BP 112/68 97/60 O2 Sat % 96 01/09/19 01/09/19 01/09/19 00:00 04:00 08:00 Temp 97.8 F 97.6 F HR 81 76 RR 18 18 18 BP 155/100 148/94 O2 Sat % 97 96 01/09/19 01/09/19 01/09/19 08:31 09:09 09:10 Temp 97.5 F HR 74 74 74 RR 20 BP 129/77 129/77 129/77 O2 Sat % 90 Microbiology 01/07/19 12:40 Lung - Right Gram Stain - Final 01/07/19 12:40 Lung - Right Sputum Culture - Preliminary 01/04/19 19:50 Blood - Preliminary NO GROWTH AFTER 48 HOURS 01/04/19 19:35 Blood - Preliminary NO GROWTH AFTER 48 HOURS 01/05/19 06:55 Nares - Final NO MRSA ISOLATED Laboratory Results - last 24 hr 01/09/19 01/09/19 01/09/19 06:22 06:22 06:22 Sodium 135 L Potassium 4.2 Chloride 100 Carbon Dioxide 27.0 Anion Gap 12.2 BUN 19 Creatinine 0.8 Est GFR ( Amer) > 60.0 Est GFR (Non-Af Amer) > 60.0 BUN/Creatinine Ratio 23.8 Glucose 94 Calcium 9.1 B-Natriuretic Peptide 808.0 H Vancomycin Trough 21.5 H Diagnoses OBESITY, UNSPECIFIED (01/05/19) SLEEP APNEA, UNSPECIFIED (01/05/19) ESSENTIAL (PRIMARY) HYPERTENSION (01/05/19) CARDIOMYOPATHY, UNSPECIFIED (01/05/19) ACUTE ON CHRONIC SYSTOLIC (CONGESTIVE) HEART FAILURE (01/05/19) CELLULITIS OF RIGHT LOWER LIMB (01/05/19) CELLULITIS OF LEFT LOWER LIMB (01/05/19) WEAKNESS (01/05/19) BODY MASS INDEX (BMI) 37.0-37.9, ADULT (01/05/19) Current Medications Acetaminophen (Tylenol) 650 mg PO Q4H PRN PRN Reason: Pain (Moderate) Stop: 03/07/19 14:17 Last Admin: 01/06/19 14:59 Dose: 650 mg Aspirin (Aspirin Chewable) 81 mg PO DAILY [facility] Stop: 03/06/19 08:59 Last Admin: 01/09/19 09:10 Dose: 81 mg Atorvastatin Calcium (Lipitor) 20 mg PO DAILY [facility]; Protocol Stop: 03/07/19 08:59 Last Admin: 01/09/19 09:09 Dose: 20 mg Carvedilol (Coreg) 12.5 mg PO DAILY [facility] Stop: 03/06/19 08:59 Last Admin: 01/09/19 09:10 Dose: 12.5 mg Enoxaparin Sodium (Lovenox) 40 mg SUBQ DAILY [facility] Stop: 03/06/19 08:59 Last Admin: 01/09/19 09:11 Dose: 40 mg Furosemide (Lasix) 40 mg IVP BID [facility] Stop: 03/06/19 08:59 Last Admin: 01/09/19 09:10 Dose: 40 mg Vancomycin HCl 1.5 gm/ Sodium (Chloride) 300 mls @ 150 mls/hr IV Q8H [facility] Stop: 03/08/19 16:59 Last Admin: 01/09/19 09:23 Dose: 150 mls/hr Levofloxacin (Levaquin Pb) 500 mg in 100 mls @ 100 mls/hr IV Q24HR [facility] Stop: 03/08/19 11:59 Last Admin: 01/08/19 12:19 Dose: 100 mls/hr Lisinopril (Zestril) 5 mg PO DAILY [facility] Stop: 03/07/19 08:59 Last Admin: 01/09/19 09:09 Dose: 5 mg Miscellaneous (Zosyn Iv Per Pharmacy) 1 [facility] PRN PRN PRN Reason: Suspected infection Stop: 03/07/19 05:08 Miscellaneous (Vancomycin Iv Per Pharmacy) 1 [facility] PRN PRN PRN Reason: PROTOCOL Stop: 03/07/19 08:48 Spironolactone (Aldactone) 50 mg PO DAILY [facility] Stop: 03/06/19 08:59 Last Admin: 01/09/19 09:10 Dose: 50 mg Subjective: cellulitis pn hpi- vemnous duplex neg dvt abx adjusted ros no efvr o/e vs scheat vesicukar abd soft ext pulse edema cellulitis Vital Signs - 24 hr 01/06/19 01/06/19 01/06/19 17:29 19:00 19:55 Temp HR 59 RR 18 20 BP 104/61 O2 Sat % 98 01/06/19 01/06/19 01/06/19 20:00 21:33 23:00 Temp 97.6 F HR 82 RR 19 24 18 BP 116/77 O2 Sat % 95 98 01/06/19 01/07/19 01/07/19 23:32 00:00 01:25 Temp 98.2 F HR 87 RR 27 18 20 BP 128/79 O2 Sat % 98 100 98 01/07/19 01/07/19 01/07/19 03:00 03:36 04:00 Temp 98.7 F 98.7 F HR 103 86 RR 20 19 19 BP 132/85 124/67 O2 Sat % 97 97 01/07/19 01/07/19 01/07/19 07:17 08:00 09:21 Temp 97.4 F HR 74 87 RR 20 20 BP 139/96 139/96 O2 Sat % 94 94 01/07/19 01/07/19 01/07/19 09:22 11:00 12:00 Temp 98 F HR 87 79 RR 20 20 BP 139/96 128/82 O2 Sat % 100 01/07/19 16:00 Temp 97.3 F HR 58 RR 25 BP 90/45 O2 Sat % 93 Microbiology 01/04/19 19:50 Blood - Preliminary NO GROWTH AFTER 48 HOURS 01/04/19 19:35 Blood - Preliminary NO GROWTH AFTER 48 HOURS 01/05/19 06:55 Nares - Final NO MRSA ISOLATED Laboratory Results - last 24 hr 01/07/19 01/07/19 01/07/19 05:40 05:40 16:00 WBC 7.1 RBC 4.79 Hgb 14.8 Hct 44.6 MCV 93.1 MCH 30.8 H MCHC Differential 33.1 RDW 14.7 Plt Count 183 MPV 8.2 Neutrophils % 70.6 Lymphocytes % 13.2 L Monocytes % 11.6 H Eosinophils % 4.6 Basophils % 0.0 Phosphorus 3.2 Magnesium 1.9 Vancomycin Trough 11.4 H Diagnoses OBESITY, UNSPECIFIED (01/05/19) SLEEP APNEA, UNSPECIFIED (01/05/19) ESSENTIAL (PRIMARY) HYPERTENSION (01/05/19) CARDIOMYOPATHY, UNSPECIFIED (01/05/19) ACUTE ON CHRONIC SYSTOLIC (CONGESTIVE) HEART FAILURE (01/05/19) CELLULITIS OF RIGHT LOWER LIMB (01/05/19) CELLULITIS OF LEFT LOWER LIMB (01/05/19) WEAKNESS (01/05/19) BODY MASS INDEX (BMI) 37.0-37.9, ADULT (01/05/19) Current Medications Acetaminophen (Tylenol) 650 mg PO Q4H PRN PRN Reason: Pain (Moderate) Stop: 03/07/19 14:17 Last Admin: 01/06/19 14:59 Dose: 650 mg Aspirin (Aspirin Chewable) 81 mg PO DAILY [facility] Stop: 03/06/19 08:59 Last Admin: 01/07/19 09:22 Dose: 81 mg Atorvastatin Calcium (Lipitor) 20 mg PO DAILY [facility]; Protocol Stop: 03/07/19 08:59 Last Admin: 01/07/19 09:23 Dose: 20 mg Carvedilol (Coreg) 12.5 mg PO DAILY [facility] Stop: 03/06/19 08:59 Last Admin: 01/07/19 09:22 Dose: 12.5 mg Enoxaparin Sodium (Lovenox) 40 mg SUBQ DAILY [facility] Stop: 03/06/19 08:59 Last Admin: 01/07/19 09:24 Dose: 40 mg Furosemide (Lasix) 40 mg IVP BID [facility] Stop: 03/06/19 08:59 Last Admin: 01/07/19 09:21 Dose: 40 mg Vancomycin HCl 1.5 gm/ Sodium (Chloride) 300 mls @ 150 mls/hr IV Q8H [facility] Stop: 03/08/19 16:59 Levofloxacin (Levaquin Pb) 500 mg in 100 mls @ 100 mls/hr IV Q24HR [facility] Stop: 03/08/19 11:59 Lisinopril (Zestril) 5 mg PO DAILY [facility] Stop: 03/07/19 08:59 Last Admin: 01/07/19 09:22 Dose: 5 mg Miscellaneous (Zosyn Iv Per Pharmacy) 1 ea PRN PRN PRN Reason: Suspected infection Stop: 03/07/19 05:08 Miscellaneous (Vancomycin Iv Per Pharmacy) 1 [facility] PRN PRN PRN Reason: PROTOCOL Stop: 03/07/19 08:48 Spironolactone (Aldactone) 50 mg PO DAILY [facility] Stop: 03/06/19 08:59 Last Admin: 01/07/19 09:22 Dose: 50 mg Infectious Disease Objective - Results Result Diagrams: 01/07/19 05:40 01/09/19 06:22 Recent Labs: Laboratory Last Values WBC 7.1 Th/cmm (4.8-10.8) 01/07/19 05:40 RBC 4.79 Mil/cmm (4.30-5.70) 01/07/19 05:40 Hgb 14.8 gm/dL (12-16) 01/07/19 05:40 Hct 44.6 % (41.0-60) 01/07/19 05:40 MCV 93.1 fl (80-99) 01/07/19 05:40 MCH 30.8 pg (26.0-30.0) H 01/07/19 05:40 MCHC Differential 33.1 pg (28.0-36.0) 01/07/19 05:40 RDW 14.7 % (11.5-20.0) 01/07/19 05:40 Plt Count 183 Th/cmm (150-400) 01/07/19 05:40 MPV 8.2 fl 01/07/19 05:40 Add Manual Diff YES 01/04/19 19:35 Neutrophils % 70.6 % (40.0-80.0) 01/07/19 05:40 Band Neutrophils % 0 % (0-10) 01/04/19 19:35 Lymphocytes % 13.2 % (20.0-50.0) L 01/07/19 05:40 Monocytes % 11.6 % (2.0-10.0) H 01/07/19 05:40 Eosinophils % 4.6 % (0.0-5.0) 01/07/19 05:40 Basophils % 0.0 % (0.0-2.0) 01/07/19 05:40 Neutrophils (Manual) 84 % (40-80) H 01/04/19 19:35 Lymphocytes 8 % (20-50) L 01/04/19 19:35 Monocytes 8 % (2-10) 01/04/19 19:35 Eosinophils 0 % (0-5) 01/04/19 19:35 Basophils 0 % (0-3) 01/04/19 19:35 Specimen Source ARTERIAL 01/05/19 00:30 Sample Site Right Radial 01/05/19 00:30 pH 7.38 (7.35-7.45) 01/05/19 00:30 pCO2 43.7 mmHg (35.0-45.0) 01/05/19 00:30 pO2 109.5 mmHg (80.0-100.0) H 01/05/19 00:30 HCO3 25.3 mEq/L (20.0-26.0) 01/05/19 00:30 Base Excess 0.0 mEq/L (-3.0-3.0) 01/05/19 00:30 O2 Saturation 97.9 % (92.0-100.0) 01/05/19 00:30 Javier Test Positive 01/05/19 00:30 Vent Rate N/A 01/05/19 00:30 Inspired O2 36 01/05/19 00:30 Tidal Volume N/A 01/05/19 00:30 PEEP N/A 01/05/19 00:30 Pressure (ins/psv/peep) N/A 01/05/19 00:30 Critical Value MM,IN [employer]ATION TEACHER 01/05/19 00:30 Sodium 135 mEq/L (136-145) L 01/09/19 06:22 Potassium 4.2 mEq/L (3.5-5.1) 01/09/19 06:22 Chloride 100 mEq/L (98-107) 01/09/19 06:22 Carbon Dioxide 27.0 mEq/L (21.0-31.0) 01/09/19 06:22 Anion Gap 12.2 (7.0-16.0) 01/09/19 06:22 BUN 19 mg/dL (7-25) 01/09/19 06:22 Creatinine 0.8 mg/dL (0.7-1.3) 01/09/19 06:22 Est GFR ( Amer) > 60.0 ml/min (>90) 01/09/19 06:22 Est GFR (Non-Af Amer) > 60.0 ml/min 01/09/19 06:22 BUN/Creatinine Ratio 23.8 01/09/19 06:22 Glucose 94 mg/dL (70-105) 01/09/19 06:22 Calcium 9.1 mg/dL (8.6-10.3) 01/09/19 06:22 Phosphorus 3.2 mg/dL (2.5-5.0) 01/07/19 05:40 Magnesium 1.9 mg/dL (1.9-2.7) 01/07/19 05:40 Total Bilirubin 2.7 mg/dL (0.3-1.0) H 01/06/19 04:51 AST 24 U/L (13-39) 01/06/19 04:51 ALT 21 U/L (7-52) 01/06/19 04:51 Alkaline Phosphatase 93 U/L (34-104) 01/06/19 04:51 B-Natriuretic Peptide 808.0 pg/mL (5.0-100.0) H 01/09/19 06:22 Total Protein 7.0 gm/dL (6.0-8.3) 01/06/19 04:51 Albumin 3.4 gm/dL (4.2-5.5) L 01/06/19 04:51 Globulin 3.6 gm/dL 01/06/19 04:51 Albumin/Globulin Ratio 0.9 (1.0-1.8) L 01/06/19 04:51 Triglycerides 53 mg/dL (<150) 01/06/19 04:51 Cholesterol 91 mg/dL (<200) 01/06/19 04:51 LDL Cholesterol Direct 52 mg/dL (75-193) L 01/06/19 04:51 HDL Cholesterol 36 mg/dL (23-92) 01/06/19 04:51 TSH 0.03 uIU/ml (0.34-5.60) L 01/06/19 04:51 Urine Source CLEAN C 01/05/19 10:00 Urine Color YELLOW 01/05/19 10:00 Urine Clarity CLEAR (CLEAR) 01/05/19 10:00 Urine pH 6.0 (4.6 - 8.0) 01/05/19 10:00 Ur Specific [place] 1.010 (1.005-1.030) 01/05/19 10:00 Urine Protein NEGATIVE mg/dL (NEGATIVE) 01/05/19 10:00 Urine Glucose (UA) NEGATIVE mg/dL (NEGATIVE) 01/05/19 10:00 Urine Ketones NEGATIVE mg/dL (NEGATIVE) 01/05/19 10:00 Urine Blood NEGATIVE (NEGATIVE) 01/05/19 10:00 Urine Nitrate NEGATIVE (NEGATIVE) 01/05/19 10:00 Urine Bilirubin NEGATIVE (NEGATIVE) 01/05/19 10:00 Urine Urobilinogen 0.2 E.U./dL (0.2 - 1.0) 01/05/19 10:00 Ur Leukocyte Esterase NEGATIVE (NEGATIVE) 01/05/19 10:00 Vancomycin Trough 21.5 ug/mL (5-10) H 01/09/19 06:22 - Physical Exam Vitals and I&O: Vital Signs Temp 97.5 F 01/09/19 08:31 Pulse 74 01/09/19 09:10 Resp 20 01/09/19 08:31 BP 129/77 01/09/19 09:10 Pulse Ox 90 01/09/19 08:31 Intake & Output 01/08/19 01/09/19 01/09/19 18:59 06:59 18:59 Intake Total 600 450 Output Total 1200 Balance 600 -750 Weight (lbs) 135.397 kg Intake: Intake, IV Amount 600 300 Vancomycin HCl 1.5 gm In 600 300 Sodium Chloride 0.9% 300 ml @ 150 mls/hr IV Q8H [facility] Rx#:[id number] Oral 150 Output: Urine 1200 Other: # Voids 3 # Bowel Movements 0 Weight Source Bedscale Active Medications: Current Medications Acetaminophen (Tylenol) 650 mg PO Q4H PRN PRN Reason: Pain (Moderate) Stop: 03/07/19 14:17 Last Admin: 01/06/19 14:59 Dose: 650 mg Aspirin (Aspirin Chewable) 81 mg PO DAILY [facility] Stop: 03/06/19 08:59 Last Admin: 01/09/19 09:10 Dose: 81 mg Atorvastatin Calcium (Lipitor) 20 mg PO DAILY [facility]; Protocol Stop: 03/07/19 08:59 Last Admin: 02/13/19 09:09 Dose: 20 mg Carvedilol (Coreg) 12.5 mg PO DAILY [facility] Stop: 03/06/19 08:59 Last Admin: 01/09/19 09:10 Dose: 12.5 mg Enoxaparin Sodium (Lovenox) 40 mg SUBQ DAILY [facility] Stop: 03/06/19 08:59 Last Admin: 01/09/19 09:11 Dose: 40 mg Furosemide (Lasix) 40 mg IVP BID [facility] Stop: 03/06/19 08:59 Last Admin: 01/09/19 09:10 Dose: 40 mg Vancomycin HCl 1.5 gm/ Sodium (Chloride) 300 mls @ 150 mls/hr IV Q8H [facility] Stop: 03/08/19 16:59 Last Admin: 01/09/19 09:23 Dose: 150 mls/hr Levofloxacin (Levaquin Pb) 500 mg in 100 mls @ 100 mls/hr IV Q24HR [facility] Stop: 03/08/19 11:59 Last Admin: 01/08/19 12:19 Dose: 100 mls/hr Lisinopril (Zestril) 5 mg PO DAILY [facility] Stop: 03/07/19 08:59 Last Admin: 01/09/19 09:09 Dose: 5 mg Miscellaneous (Zosyn Iv Per Pharmacy) 1 [facility] PRN PRN PRN Reason: Suspected infection Stop: 03/07/19 05:08 Miscellaneous (Vancomycin Iv Per Pharmacy) 1 [facility] PRN PRN PRN Reason: PROTOCOL Stop: 03/07/19 08:48 Spironolactone (Aldactone) 50 mg PO DAILY [facility] Stop: 03/06/19 08:59 Last Admin: 01/09/19 09:10 Dose: 50 mg - Procedures Procedures: Procedures Procedure Code Date DRAINAGE OF STOMACH WITH DRAINAGE DEVICE, VIA OPENING [id number] 08/17/16 EXCISION OF GREATER OMENTUM, OPEN APPROACH [id number] 08/17/16 REPAIR ABDOMINAL WALL, OPEN APPROACH [id number] 08/17/16 Infectious Disease Assmt/Plan - Problem List Patient Problems: All Active Problems SEVERE DYSPNEA AND COUGH AND PEDAL EDEMA (Acute)
[2019-01-09] MEDS: Levofloxacin 500mg/100mL 500 MG/100 ML BAG IV SCH (12:02)
--- NOTE | 2019-01-09 14:03 | General Progress Note ---
Subjective - Review of Systems Service Date: 01/09/19 Subjective: Patient has less shortness of breath still swelling in both lower extremity Objective - Results Result Diagrams: 01/07/19 05:40 01/09/19 06:22 Recent Labs: Laboratory Last Values WBC 7.1 Th/cmm (4.8-10.8) 01/07/19 05:40 RBC 4.79 Mil/cmm (4.30-5.70) 01/07/19 05:40 Hgb 14.8 gm/dL (12-16) 01/07/19 05:40 Hct 44.6 % (41.0-60) 01/07/19 05:40 MCV 93.1 fl (80-99) 01/07/19 05:40 MCH 30.8 pg (26.0-30.0) H 01/07/19 05:40 MCHC Differential 33.1 pg (28.0-36.0) 01/07/19 05:40 RDW 14.7 % (11.5-20.0) 01/07/19 05:40 Plt Count 183 Th/cmm (150-400) 01/07/19 05:40 MPV 8.2 fl 01/07/19 05:40 Add Manual Diff YES 01/04/19 19:35 Neutrophils % 70.6 % (40.0-80.0) 01/07/19 05:40 Band Neutrophils % 0 % (0-10) 01/04/19 19:35 Lymphocytes % 13.2 % (20.0-50.0) L 01/07/19 05:40 Monocytes % 11.6 % (2.0-10.0) H 01/07/19 05:40 Eosinophils % 4.6 % (0.0-5.0) 01/07/19 05:40 Basophils % 0.0 % (0.0-2.0) 01/07/19 05:40 Neutrophils (Manual) 84 % (40-80) H 01/04/19 19:35 Lymphocytes 8 % (20-50) L 01/04/19 19:35 Monocytes 8 % (2-10) 01/04/19 19:35 Eosinophils 0 % (0-5) 01/04/19 19:35 Basophils 0 % (0-3) 01/04/19 19:35 Specimen Source ARTERIAL 01/05/19 00:30 Sample Site Right Radial 01/05/19 00:30 pH 7.38 (7.35-7.45) 01/05/19 00:30 pCO2 43.7 mmHg (35.0-45.0) 01/05/19 00:30 pO2 109.5 mmHg (80.0-100.0) H 01/05/19 00:30 HCO3 25.3 mEq/L (20.0-26.0) 01/05/19 00:30 Base Excess 0.0 mEq/L (-3.0-3.0) 01/05/19 00:30 O2 Saturation 97.9 % (92.0-100.0) 01/05/19 00:30 Javier Test Positive 01/05/19 00:30 Vent Rate N/A 01/05/19 00:30 Inspired O2 36 01/05/19 00:30 Tidal Volume N/A 01/05/19 00:30 PEEP N/A 01/05/19 00:30 Pressure (ins/psv/peep) N/A 01/05/19 00:30 Critical Value MM,ASSISTANT HEALTH EDUCATOR 01/05/19 00:30 Sodium 135 mEq/L (136-145) L 01/09/19 06:22 Potassium 4.2 mEq/L (3.5-5.1) 01/09/19 06:22 Chloride 100 mEq/L (98-107) 01/09/19 06:22 Carbon Dioxide 27.0 mEq/L (21.0-31.0) 01/09/19 06:22 Anion Gap 12.2 (7.0-16.0) 01/09/19 06:22 BUN 19 mg/dL (7-25) 01/09/19 06:22 Creatinine 0.8 mg/dL (0.7-1.3) 01/09/19 06:22 Est GFR ( Amer) > 60.0 ml/min (>90) 01/09/19 06:22 Est GFR (Non-Af Amer) > 60.0 ml/min 01/09/19 06:22 BUN/Creatinine Ratio 23.8 01/09/19 06:22 Glucose 94 mg/dL (70-105) 01/09/19 06:22 Calcium 9.1 mg/dL (8.6-10.3) 01/09/19 06:22 Phosphorus 3.2 mg/dL (2.5-5.0) 01/07/19 05:40 Magnesium 1.9 mg/dL (1.9-2.7) 01/07/19 05:40 Total Bilirubin 2.7 mg/dL (0.3-1.0) H 01/06/19 04:51 AST 24 U/L (13-39) 01/06/19 04:51 ALT 21 U/L (7-52) 01/06/19 04:51 Alkaline Phosphatase 93 U/L (34-104) 01/06/19 04:51 B-Natriuretic Peptide 808.0 pg/mL (5.0-100.0) H 01/09/19 06:22 Total Protein 7.0 gm/dL (6.0-8.3) 01/06/19 04:51 Albumin 3.4 gm/dL (4.2-5.5) L 01/06/19 04:51 Globulin 3.6 gm/dL 01/06/19 04:51 Albumin/Globulin Ratio 0.9 (1.0-1.8) L 01/06/19 04:51 Triglycerides 53 mg/dL (<150) 01/06/19 04:51 Cholesterol 91 mg/dL (<200) 01/06/19 04:51 LDL Cholesterol Direct 52 mg/dL (75-193) L 01/06/19 04:51 HDL Cholesterol 36 mg/dL (23-92) 01/06/19 04:51 TSH 0.03 uIU/ml (0.34-5.60) L 01/06/19 04:51 Urine Source CLEAN C 01/05/19 10:00 Urine Color YELLOW 01/05/19 10:00 Urine Clarity CLEAR (CLEAR) 01/05/19 10:00 Urine pH 6.0 (4.6 - 8.0) 01/05/19 10:00 Ur Specific [place] 1.010 (1.005-1.030) 01/05/19 10:00 Urine Protein NEGATIVE mg/dL (NEGATIVE) 01/05/19 10:00 Urine Glucose (UA) NEGATIVE mg/dL (NEGATIVE) 01/05/19 10:00 Urine Ketones NEGATIVE mg/dL (NEGATIVE) 01/05/19 10:00 Urine Blood NEGATIVE (NEGATIVE) 01/05/19 10:00 Urine Nitrate NEGATIVE (NEGATIVE) 01/05/19 10:00 Urine Bilirubin NEGATIVE (NEGATIVE) 01/05/19 10:00 Urine Urobilinogen 0.2 E.U./dL (0.2 - 1.0) 01/05/19 10:00 Ur Leukocyte Esterase NEGATIVE (NEGATIVE) 01/05/19 10:00 Vancomycin Trough 21.5 ug/mL (5-10) H 01/09/19 06:22 - Physical Exam Vitals and I&O: Vital Signs Temp 97.7 F 01/09/19 11:36 Pulse 70 01/09/19 11:36 Resp 18 01/09/19 12:00 BP 131/70 01/09/19 11:36 Pulse Ox 91 01/09/19 11:36 Intake & Output 01/08/19 01/09/19 01/09/19 18:59 06:59 18:59 Intake Total 700 450 Output Total 1200 Balance 700 -750 Weight (lbs) 135.397 kg Intake: Intake, IV Amount 700 300 Levofloxacin 500mg/100mL 100 500 mg In 100 ml @ 100 mls/hr IV Q24HR [facility] Rx#: [id number] Vancomycin HCl 1.5 gm In 600 300 Sodium Chloride 0.9% 300 ml @ 150 mls/hr IV Q8H [facility] Rx#:[id number] Oral 150 Output: Urine 1200 Other: # Voids 3 # Bowel Movements 0 Weight Source Bedscale Active Medications: Current Medications Acetaminophen (Tylenol) 650 mg PO Q4H PRN PRN Reason: Pain (Moderate) Stop: 03/07/19 14:17 Last Admin: 01/06/19 14:59 Dose: 650 mg Aspirin (Aspirin Chewable) 81 mg PO DAILY [facility] Stop: 03/06/19 08:59 Last Admin: 01/09/19 09:10 Dose: 81 mg Atorvastatin Calcium (Lipitor) 20 mg PO DAILY [facility]; Protocol Stop: 03/07/19 08:59 Last Admin: 01/09/19 09:09 Dose: 20 mg Carvedilol (Coreg) 12.5 mg PO DAILY [facility] Stop: 03/06/19 08:59 Last Admin: 01/09/19 09:10 Dose: 12.5 mg Enoxaparin Sodium (Lovenox) 40 mg SUBQ DAILY [facility] Stop: 03/06/19 08:59 Last Admin: 01/09/19 09:11 Dose: 40 mg Furosemide (Lasix) 40 mg IVP BID [facility] Stop: 03/06/19 08:59 Last Admin: 01/09/19 09:10 Dose: 40 mg Vancomycin HCl 1.5 gm/ Sodium (Chloride) 300 mls @ 150 mls/hr IV Q8H [facility] Stop: 03/08/19 16:59 Last Admin: 01/09/19 09:23 Dose: 150 mls/hr Levofloxacin (Levaquin Pb) 500 mg in 100 mls @ 100 mls/hr IV Q24HR [facility] Stop: 03/08/19 11:59 Last Admin: 01/09/19 12:02 Dose: 100 mls/hr Lisinopril (Zestril) 5 mg PO DAILY [facility] Stop: 03/07/19 08:59 Last Admin: 01/09/19 09:09 Dose: 5 mg Metolazone (Zaroxolyn) 5 mg PO BID [facility] Stop: 03/10/19 16:59 Miscellaneous (Zosyn Iv Per Pharmacy) 1 [facility] PRN PRN PRN Reason: Suspected infection Stop: 03/07/19 05:08 Miscellaneous (Vancomycin Iv Per Pharmacy) 1 [facility] PRN PRN PRN Reason: PROTOCOL Stop: 03/07/19 08:48 Spironolactone (Aldactone) 50 mg PO DAILY [facility] Stop: 03/06/19 08:59 Last Admin: 01/09/19 09:10 Dose: 50 mg General: Alert HEENT: Mucous membr. moist/pink Neck: Supple, JVD (10 cm post tunnel angle), +2 carotid pulse wo bruit Cardiovascular: Regular rate, Normal S1, Normal S2, Systolic murmurs, Other ( cardiomyopathy) Lungs: Normal air movement, Other (rales) Abdomen: Bowel sounds, Soft, Obese Extremities: Edema, Other (cellulitis in both the legs) Neurological: Normal gait, Normal speech, Normal tone, Reflexes 2+ - Procedures Procedures: Procedures Procedure Code Date DRAINAGE OF STOMACH WITH DRAINAGE DEVICE, VIA OPENING [id number] 08/17/16 EXCISION OF GREATER OMENTUM, OPEN APPROACH [id number] 08/17/16 REPAIR ABDOMINAL WALL, OPEN APPROACH [id number] 08/17/16 Assessment/Plan - Problem List Patient Problems: All Active Problems SEVERE DYSPNEA AND COUGH AND PEDAL EDEMA (Acute) - Assessment Assessment: Congestive heart failure systolic dysfunction and acute Severe cardiomyopathy Hypertension Hyperlipidemia Cellulitis both legs Morbid obesity Obstructive sleep apnea Echocardiogram ejection fraction 10% minimal hypertrophy of the left ventricle left atrial enlargement moderate mitral regurgitation mild tricuspid regurgitation mild pulmonary regurgitation - Plan Plan: Continue IV antibiotic Lasix and get an echocardiogram report noted Start Zaroxolyn 5 mg twice a day as BNP level is elevated
[2019-01-09] MEDS ORDERED: Metolazone 5 MG TAB PO SCH (17:00)
--- NOTE | 2019-01-10 02:46 | Infectious Disease Prog Note ---
Infectious Disease Subjective - Review of Systems Service Date: 01/09/19 Subjective: cellulitis pn hpi- vemnous duplex neg dvt schedule for discharge levaquim po x 7 days prescibed abx adjusted ros no efvr o/e vs scheat vesicukar abd soft ext pulse edema cellulitis Vital Signs - 24 hr 01/06/19 01/06/19 01/06/19 17:29 19:00 19:55 Temp HR 59 RR 18 20 BP 104/61 O2 Sat % 98 01/06/19 01/06/19 01/06/19 20:00 21:33 23:00 Temp 97.6 F HR 82 RR 19 24 18 BP 116/77 O2 Sat % 95 98 01/06/19 01/07/19 01/07/19 23:32 00:00 01:25 Temp 98.2 F HR 87 RR 27 18 20 BP 128/79 O2 Sat % 98 100 98 01/07/19 01/07/19 01/07/19 03:00 03:36 04:00 Temp 98.7 F 98.7 F HR 103 86 RR 20 19 19 BP 132/85 124/67 O2 Sat % 97 97 01/07/19 01/07/19 01/07/19 07:17 08:00 09:21 Temp 97.4 F HR 74 87 RR 20 20 BP 139/96 139/96 O2 Sat % 94 94 01/07/19 01/07/19 01/07/19 09:22 11:00 12:00 Temp 98 F HR 87 79 RR 20 20 BP 139/96 128/82 O2 Sat % 100 01/07/19 16:00 Temp 97.3 F HR 58 RR 25 BP 90/45 O2 Sat % 93 Microbiology 01/04/19 19:50 Blood - Preliminary NO GROWTH AFTER 48 HOURS 01/04/19 19:35 Blood - Preliminary NO GROWTH AFTER 48 HOURS 01/05/19 06:55 Nares - Final NO MRSA ISOLATED Laboratory Results - last 24 hr 01/07/19 01/07/19 01/07/19 05:40 05:40 16:00 WBC 7.1 RBC 4.79 Hgb 14.8 Hct 44.6 MCV 93.1 MCH 30.8 H MCHC Differential 33.1 RDW 14.7 Plt Count 183 MPV 8.2 Neutrophils % 70.6 Lymphocytes % 13.2 L Monocytes % 11.6 H Eosinophils % 4.6 Basophils % 0.0 Phosphorus 3.2 Magnesium 1.9 Vancomycin Trough 11.4 H Diagnoses OBESITY, UNSPECIFIED (01/05/19) SLEEP APNEA, UNSPECIFIED (01/05/19) ESSENTIAL (PRIMARY) HYPERTENSION (01/05/19) CARDIOMYOPATHY, UNSPECIFIED (01/05/19) ACUTE ON CHRONIC SYSTOLIC (CONGESTIVE) HEART FAILURE (01/05/19) CELLULITIS OF RIGHT LOWER LIMB (01/05/19) CELLULITIS OF LEFT LOWER LIMB (01/05/19) WEAKNESS (01/05/19) BODY MASS INDEX (BMI) 37.0-37.9, ADULT (01/05/19) Current Medications Acetaminophen (Tylenol) 650 mg PO Q4H PRN PRN Reason: Pain (Moderate) Stop: 03/07/19 14:17 Last Admin: 01/06/19 14:59 Dose: 650 mg Aspirin (Aspirin Chewable) 81 mg PO DAILY [facility] Stop: 03/06/19 08:59 Last Admin: 01/07/19 09:22 Dose: 81 mg Atorvastatin Calcium (Lipitor) 20 mg PO DAILY [facility]; Protocol Stop: 03/07/19 08:59 Last Admin: 01/07/19 09:23 Dose: 20 mg Carvedilol (Coreg) 12.5 mg PO DAILY [facility] Stop: 03/06/19 08:59 Last Admin: 01/07/19 09:22 Dose: 12.5 mg Enoxaparin Sodium (Lovenox) 40 mg SUBQ DAILY [facility] Stop: 03/06/19 08:59 Last Admin: 01/07/19 09:24 Dose: 40 mg Furosemide (Lasix) 40 mg IVP BID [facility] Stop: 03/06/19 08:59 Last Admin: 01/07/19 09:21 Dose: 40 mg Vancomycin HCl 1.5 gm/ Sodium (Chloride) 300 mls @ 150 mls/hr IV Q8H [facility] Stop: 03/08/19 16:59 Levofloxacin (Levaquin Pb) 500 mg in 100 mls @ 100 mls/hr IV Q24HR [facility] Stop: 03/08/19 11:59 Lisinopril (Zestril) 5 mg PO DAILY [facility] Stop: 03/07/19 08:59 Last Admin: 01/07/19 09:22 Dose: 5 mg Miscellaneous (Zosyn Iv Per Pharmacy) 1 ea PRN PRN PRN Reason: Suspected infection Stop: 03/07/19 05:08 Miscellaneous (Vancomycin Iv Per Pharmacy) 1 [facility] PRN PRN PRN Reason: PROTOCOL Stop: 03/07/19 08:48 Spironolactone (Aldactone) 50 mg PO DAILY [facility] Stop: 03/06/19 08:59 Last Admin: 01/07/19 09:22 Dose: 50 mg Infectious Disease Objective - Results Result Diagrams: 01/07/19 05:40 01/09/19 06:22 Recent Labs: Laboratory Last Values WBC 7.1 Th/cmm (4.8-10.8) 01/07/19 05:40 RBC 4.79 Mil/cmm (4.30-5.70) 01/07/19 05:40 Hgb 14.8 gm/dL (12-16) 01/07/19 05:40 Hct 44.6 % (41.0-60) 01/07/19 05:40 MCV 93.1 fl (80-99) 01/07/19 05:40 MCH 30.8 pg (26.0-30.0) H 01/07/19 05:40 MCHC Differential 33.1 pg (28.0-36.0) 01/07/19 05:40 RDW 14.7 % (11.5-20.0) 01/07/19 05:40 Plt Count 183 Th/cmm (150-400) 01/07/19 05:40 MPV 8.2 fl 01/07/19 05:40 Add Manual Diff YES 01/04/19 19:35 Neutrophils % 70.6 % (40.0-80.0) 01/07/19 05:40 Band Neutrophils % 0 % (0-10) 01/04/19 19:35 Lymphocytes % 13.2 % (20.0-50.0) L 01/07/19 05:40 Monocytes % 11.6 % (2.0-10.0) H 01/07/19 05:40 Eosinophils % 4.6 % (0.0-5.0) 01/07/19 05:40 Basophils % 0.0 % (0.0-2.0) 01/07/19 05:40 Neutrophils (Manual) 84 % (40-80) H 01/04/19 19:35 Lymphocytes 8 % (20-50) L 01/04/19 19:35 Monocytes 8 % (2-10) 01/04/19 19:35 Eosinophils 0 % (0-5) 01/04/19 19:35 Basophils 0 % (0-3) 01/04/19 19:35 Specimen Source ARTERIAL 01/05/19 00:30 Sample Site Right Radial 01/05/19 00:30 pH 7.38 (7.35-7.45) 01/05/19 00:30 pCO2 43.7 mmHg (35.0-45.0) 01/05/19 00:30 pO2 109.5 mmHg (80.0-100.0) H 01/05/19 00:30 HCO3 25.3 mEq/L (20.0-26.0) 01/05/19 00:30 Base Excess 0.0 mEq/L (-3.0-3.0) 01/05/19 00:30 O2 Saturation 97.9 % (92.0-100.0) 01/05/19 00:30 Javier Test Positive 01/05/19 00:30 Vent Rate N/A 01/05/19 00:30 Inspired O2 36 01/05/19 00:30 Tidal Volume N/A 01/05/19 00:30 PEEP N/A 01/05/19 00:30 Pressure (ins/psv/peep) N/A 01/05/19 00:30 Critical Value MM,[employer] 01/05/19 00:30 Sodium 135 mEq/L (136-145) L 01/09/19 06:22 Potassium 4.2 mEq/L (3.5-5.1) 01/09/19 06:22 Chloride 100 mEq/L (98-107) 01/09/19 06:22 Carbon Dioxide 27.0 mEq/L (21.0-31.0) 01/09/19 06:22 Anion Gap 12.2 (7.0-16.0) 01/09/19 06:22 BUN 19 mg/dL (7-25) 01/09/19 06:22 Creatinine 0.8 mg/dL (0.7-1.3) 01/09/19 06:22 Est GFR ( Amer) > 60.0 ml/min (>90) 01/09/19 06:22 Est GFR (Non-Af Amer) > 60.0 ml/min 01/09/19 06:22 BUN/Creatinine Ratio 23.8 01/09/19 06:22 Glucose 94 mg/dL (70-105) 01/09/19 06:22 Calcium 9.1 mg/dL (8.6-10.3) 01/09/19 06:22 Phosphorus 3.2 mg/dL (2.5-5.0) 01/07/19 05:40 Magnesium 1.9 mg/dL (1.9-2.7) 01/07/19 05:40 Total Bilirubin 2.7 mg/dL (0.3-1.0) H 01/06/19 04:51 AST 24 U/L (13-39) 01/06/19 04:51 ALT 21 U/L (7-52) 01/06/19 04:51 Alkaline Phosphatase 93 U/L (34-104) 01/06/19 04:51 B-Natriuretic Peptide 808.0 pg/mL (5.0-100.0) H 01/09/19 06:22 Total Protein 7.0 gm/dL (6.0-8.3) 01/06/19 04:51 Albumin 3.4 gm/dL (4.2-5.5) L 01/06/19 04:51 Globulin 3.6 gm/dL 01/06/19 04:51 Albumin/Globulin Ratio 0.9 (1.0-1.8) L 01/06/19 04:51 Triglycerides 53 mg/dL (<150) 01/06/19 04:51 Cholesterol 91 mg/dL (<200) 01/06/19 04:51 LDL Cholesterol Direct 52 mg/dL (75-193) L 01/06/19 04:51 HDL Cholesterol 36 mg/dL (23-92) 01/06/19 04:51 TSH 0.03 uIU/ml (0.34-5.60) L 01/06/19 04:51 Urine Source CLEAN C 01/05/19 10:00 Urine Color YELLOW 01/05/19 10:00 Urine Clarity CLEAR (CLEAR) 01/05/19 10:00 Urine pH 6.0 (4.6 - 8.0) 01/05/19 10:00 Ur Specific [place] 1.010 (1.005-1.030) 01/05/19 10:00 Urine Protein NEGATIVE mg/dL (NEGATIVE) 01/05/19 10:00 Urine Glucose (UA) NEGATIVE mg/dL (NEGATIVE) 01/05/19 10:00 Urine Ketones NEGATIVE mg/dL (NEGATIVE) 01/05/19 10:00 Urine Blood NEGATIVE (NEGATIVE) 01/05/19 10:00 Urine Nitrate NEGATIVE (NEGATIVE) 01/05/19 10:00 Urine Bilirubin NEGATIVE (NEGATIVE) 01/05/19 10:00 Urine Urobilinogen 0.2 E.U./dL (0.2 - 1.0) 01/05/19 10:00 Ur Leukocyte Esterase NEGATIVE (NEGATIVE) 01/05/19 10:00 Vancomycin Trough 21.5 ug/mL (5-10) H 01/09/19 06:22 - Physical Exam Vitals and I&O: Vital Signs Temp 97.4 F 01/09/19 19:00 Pulse 61 01/09/19 19:00 Resp 20 01/09/19 19:00 BP 106/61 01/09/19 19:00 Pulse Ox 97 01/09/19 19:00 Intake & Output 01/09/19 01/09/19 01/10/19 06:59 18:59 06:59 Intake Total 450 800 Output Total 1200 Balance -750 800 Weight (lbs) 135.397 kg 135.397 kg Intake: Intake, IV Amount 300 300 Vancomycin HCl 1.5 gm In 300 300 Sodium Chloride 0.9% 300 ml @ 150 mls/hr IV Q8H [facility] Rx#:[id number] Oral 150 500 Output: Urine 1200 Other: # Voids 3 6 # Bowel Movements 0 1 Weight Source Bedscale Bedscale - Procedures Procedures: Procedures Procedure Code Date DRAINAGE OF STOMACH WITH DRAINAGE DEVICE, VIA OPENING [id number] 08/17/16 EXCISION OF GREATER OMENTUM, OPEN APPROACH [id number] 08/17/16 REPAIR ABDOMINAL WALL, OPEN APPROACH [id number] 08/17/16 Nutritional Asmnt/Malnutr-PDOC - Dietary Evaluation Malnutrition Findings (Please click <Entered> for more info): Nutritional Asmnt/Malnutrition Start: 01/09/19 17: 00 Text: Status: Complete Freq: Protocol: Document 01/09/19 17:00 JERRY (Rec: 01/09/19 17:19 GOMEZ [email or web address] [email or web address]) Nutritional Asmnt/Malnutrition Patient General Information Nutritional Screening Moderate Risk Diagnosis CHF exacerbation Pertinent Medical Hx/Surgical Hx cardiomyopathy, CHF, leg edema Subjective Information Pt seen sitting up in bed at time of visit, awake and alert . Lunch consumed 100%. pt stated his appetite is good. Explained current diet cardiac diet with fluid restrition to pt and pt verbalized understanding. Current Diet Order/ Nutrition Support Cardiac, fluid restriction 1200ml Pertinent Medications lipitor, lasix, levaquin, vancomycin Pertinent Labs 01/09 Na 135 01/08 Na 135 Nutritional Hx/Data Height 1.8 m Height (Calculated Centimeters) 180.3 Current Weight (lbs) 135.171 kg Weight (Calculated Kilograms) 135.2 Weight (Calculated Grams) 029147.5 [place] Body Weight 172 Body Mass Index (BMI) 41.5 Weight Status Morbidly Obese GI Symptoms GI Symptoms None Last BM 01/07 Difficult in: None Skin Integrity/Comment: edema Current %PO Good (75-100%) Estimated Nutritional Goals BEE in Kcals: Adj wt of IBW Calories/Kcals/Kg 25-30 Kcals Calculated 9037-1820 Protein: Adj wt of IBW Protein g/k.8 Protein Calculated 74 Fluid: ml fluid restriction 1200ml Nutritional Problem No current Nutrition Prob Problem N/A Malnutrition Alert Is there a minimum of two criteria No selected? Query Text:Check all the applicable criteria. A minimum of two criteria are recommended for diagnosis of either severe or non-severe malnutrition. Malnutrition Related to Morbid Obesity Malnutrition related to morbid obesity No Intervention/Recommendation Comments 1. Continue with cardiac diet with fluid restriction as ordered. 2. Monitor PO intake, wt, labs and skin integrity 3. F/U as moderate risk in 3-5 days Expected Outcomes/Goals Expected Outcomes/Goals 1. PO intake to meet at least 75% of nutritional needs. 2. Wt stability, skin to remain intact, labs to approach WNL.
== END 2019-01-09 19:27 | disposition home or self-care (01) | DRG 194 ==
LOC: ER 18:54 → MSI 01-05 01:45 → TELE 01-05 01:49
PROVIDERS: ADMIT Family Medicine; ATTEND Family Medicine
PROC: 5A09357 Assistance with Respiratory Ventilation, Less than 24 Consecutive Hours, Continuous Positive Airway Pressure (ICD-10-PCS; principal; 2019-01-05)
PROC: 5A09357 Assistance with Respiratory Ventilation, Less than 24 Consecutive Hours, Continuous Positive Airway Pressure (ICD-10-PCS; 2019-01-07)
PROC: 5A09357 Assistance with Respiratory Ventilation, Less than 24 Consecutive Hours, Continuous Positive Airway Pressure (ICD-10-PCS; 2019-01-08)
DX: I11.0 Hypertensive heart disease with heart failure (principal); J96.90 Respiratory failure, unspecified, unspecified whether with hypoxia or hypercapnia; J18.9 Pneumonia, unspecified organism; L03.115 Cellulitis of right lower limb; E66.01 Morbid (severe) obesity due to excess calories; L03.116 Cellulitis of left lower limb; I08.1 Rheumatic disorders of both mitral and tricuspid valves; I50.23 Acute on chronic systolic (congestive) heart failure; Z68.41 Body mass index [BMI] 40.0-44.9, adult; I42.9 Cardiomyopathy, unspecified; G47.33 Obstructive sleep apnea (adult) (pediatric); I25.10 Atherosclerotic heart disease of native coronary artery without angina pectoris
CPT/HCPCS: 36415-UA; 36600-90; 71045-TC; 80048-TC; 80053-TC; 80061-TC; 80202-TC; 81003-TC; 82803-TC; 83735-TC; 83880-TC; 84100-TC; 84443-TC; 85007-TC; 85025-TC; 87070; 93005; 93307-TC; 93970-TC-50; 94640; 94660; 94760; 96374; J1650; J1940; J1956; J2543; J3370; J7040; Z7610